=== PATIENT | female | born 1990 | race Caucasian/White ===

== ENCOUNTER 2020-02-26 08:09 | Day surgery (SDC) | payer BC, SELFPAY ==
[2020-02-25 16:34] VITALS: BMI 28.3
--- NOTE | 2020-02-26 08:01 | PM.IMHP ---
H&P: HPI History of Present Illness Chief complaint: Missed AB Narrative: Amy Hercules is a 29 year old female under 1st trimester in a proven abnormal [place] who is admitted for suction dilatation curettage she has an ultrasound was proves an abnormal and she is bleeding risks and benefits reviewed. Review of Systems Review of Systems: All systems reviewed & are unremarkable except as noted in HPI and below PMFSH Social History Social History Gender identity (if verbalized by the patient): Female Meds Home Medications and Allergies Home Medications Medication Instructions Recorded Confirmed Type [id number] fum-folic ac-om3 1 pkg PO DAILY 02/25/20 02/25/20 History [Daily ] Allergies Allergy/AdvReac Type Severity Reaction Status Date / Time No Known Allergies Allergy Unverified 02/25/20 16:38 Exam Const: General: no acute distress Eyes: General: appearance normal, both eyes and all related structures Neck: Neck: supple and no JVD Thyroid: thyroid normal Resp: Effort & Inspection: normal respiratory effort Auscultation: clear to auscultation bilaterally Cardio: Rate: regular rate Rhythm: regular rhythm GI: Inspection: non-distended GI Palp: Yes Soft to palpation, No Tenderness to palpation present (GI) and No Guarding due to palpation present (GI) Auscultation: normal bowel sounds : General: Yes bladder normal to palpation External Female Exam: normal external appearance Speculum Exam - Vagina: normal vaginal discharge and No vaginal bleeding Speculum Exam - Cervix: nontender Bimanual exam- vagina & uterus: bladder normal to palpation and No Cervical tenderness present OB/external & speculum: No vaginal bleeding Skin: General skin exam: no rashes or lesions noted Extrem: General: normal to inspection and no edema Psych: Mental Status: mental status grossly normal Affect: normal affect Assessment and Plan Additional Plan incomplete AB Plan: Suction dilatation curettage
[2020-02-26] MEDS: LACTATED RINGERS 1,000 ML 30 ML IV CONT (13:15)
[2020-02-26 13:20] LABS: Hematocrit 38.8 % (37.0-47.0); Hemoglobin 12.9 g/dL (12.0-15.0)
--- NOTE | 2020-02-26 13:20 | WPDANESEPPF ---
Anes - Initial Pre Proc Eval Procedure: Operation Date: 02/26/20 14:30 Proposed Procedures p Suction Dilation And Curettage - Peter Arnold MD Date/Time: 02/26/20 13:20 Surgeon: Peter Arnold MD Pre Op Diagnosis: Missed AB Patient Data Age: 29 Gender: F Height: 5 ft 5 in Weight: 77.27 kg Allergies Allergy/AdvReac Type Severity Reaction Status Date / Time No Known Allergies Allergy Unverified 02/25/20 16:38 Home Medications Medication Instructions Recorded Confirmed Type [id number] fum-folic ac-om3 1 pkg PO DAILY 02/25/20 02/25/20 History [Daily ] hydrocodone-acetaminophen [[place]] 1 tablet PO Q4H PRN #20 tablet 02/26/20 Rx Laboratory Tests 02/26/20 13:12 Hgb Pending Hct Pending Patient hx anesthesia problems: none Family hx anesthesia problems: none PMFSH Past Medical History Medical History (Updated 02/26/20 @ 13:20 by Peter Lin MD) Missed ab Social History Social History Gender identity (if verbalized by the patient): Female Anes - Eval Final PreProcedure Day of Procedure 02/26/20 13:20 Patient weight: overweight Heart: regular rate and rhythm Lungs: clear to auscultation Airway: Mallampati scale class II Neurological: alert and oriented Last oral intake: >/= 8 hours ASA classification: II Emergent: no Anesthetic plan: proceed Anesthesia type and monitoring: general GIVS and standard monitoring Informed Consent: The patient's anesthetic plan and its attendant risks and benefits were discussed with the patient/family/POA. Questions were solicited and answers provided to the satisfaction of the patient/family/POA.
[2020-02-26 13:43] VITALS: BP 117/69; PULSE 92; RESP 16; TEMP 36.6; O2SAT 100
[2020-02-26] MEDS: KETOROLAC 30 MG/ML VIAL (*BKC) IM (14:30)
--- NOTE | 2020-02-26 14:53 | SUR.OPER ---
ebl:25cc
--- NOTE | 2020-02-26 14:59 | PM.PROC ---
Procedure Note - Detailed Date of procedure: 02/26/20 Pre-op diagnosis: Missed AB Surgeon: Peter Arnold MD Postop diagnosis: Missed AB Anesthesia: IV sedation and local Procedure: Suction dilatation curettage EBL: 25cc Findings: Uterus sounded to 10cm. Tissue consistent with products conception Complications: None Description of procedure patient was prepped and draped in the normal sterile fashion placed in the dorsal lithotomy position. Under excellent IV sedation weighted speculum placed in posterior fornix of vagina. Anterior lip of cervix grasped with a single-tooth tenaculum. 2.5cc of 1% xylocaine anesthesia placed at 2:48 a.m. and kelsie the cervix. Uterus sounded to 10cm. Serial dilatation fragment out performed follow-up passes with a 10. Curved suction curette. This passed over the entire 360? revealed removing a minimal amount of tissue. When a good grating sound was heard, the instruments removed. Blood loss was estimated 25cc. All sponge, needle, instrument counts were correct. There were no immediate complications. She did not require RhoGAM as she is Rh positive
[2020-02-26 15:00] VITALS: BP 105/61; PULSE 103; RESP 16; O2SAT 96
[2020-02-26 15:30] VITALS: BP 110/68; PULSE 78; RESP 16
== END 2020-02-26 16:05 | disposition home or self-care (01) ==
PROVIDERS: PCP Internal Medicine; Visit Provider Obstetrics & Gynecology
PROC: (CPT 59820; principal; 2020-02-26 14:30)
DX: O02.1 Missed abortion (principal)
CPT/HCPCS: 59820; 36415; 85014; 85018; 86900; 86901; 88305; 88342; A9270; J1885; J2250; J2704; J3010; J7120

== ENCOUNTER 2020-06-18 02:37 | Day surgery (SDC) | payer BC, SELFPAY ==
[2020-06-17 12:28] VITALS: BMI 28.3
--- NOTE | 2020-06-17 13:09 | PM.IMHP ---
H&P: HPI History of Present Illness Chief complaint: Missed Ab Narrative: Amy Hercules is a 29 year old female who is admitted for 1st trimester missed AB. She had a previous miscarriage and vaginal delivery x1. She has an ultrasound showing an abnormal 1st trimester . Risks and benefits reviewed Review of Systems Review of Systems: All systems reviewed & are unremarkable except as noted in HPI and below PMFSH Past Medical History Medical History Missed ab Social History Social History Smoking status: Never smoker Gender identity (if verbalized by the patient): Female Spiritual care concerns: No Meds Home Medications and Allergies Home Medications Medication Instructions Recorded Confirmed Type [id number] fum-folic ac-om3 1 pkg PO DAILY 02/25/20 06/17/20 History [Daily ] progesterone micronized 200 mg PO DAILY 06/17/20 06/17/20 History Allergies Allergy/AdvReac Type Severity Reaction Status Date / Time No Known Allergies Allergy Unverified 06/17/20 12:29 Exam Const: General: no acute distress Eyes: General: appearance normal, both eyes and all related structures Neck: Neck: supple and no JVD Thyroid: thyroid normal Resp: Effort & Inspection: normal respiratory effort Auscultation: clear to auscultation bilaterally Cardio: Rate: regular rate Rhythm: regular rhythm GI: Inspection: non-distended GI Palp: Yes Soft to palpation, No Tenderness to palpation present (GI) and No Guarding due to palpation present (GI) Auscultation: normal bowel sounds : General: Yes bladder normal to palpation External Female Exam: normal external appearance Speculum Exam - Vagina: normal vaginal discharge and No vaginal bleeding Speculum Exam - Cervix: nontender Bimanual exam- vagina & uterus: bladder normal to palpation and No Cervical tenderness present OB/external & speculum: No vaginal bleeding Skin: General skin exam: no rashes or lesions noted Extrem: General: normal to inspection and no edema Psych: Mental Status: mental status grossly normal Affect: normal affect Assessment and Plan Additional Plan impression: 1St trimester has incomplete AB Plan: Suction D&C
--- NOTE | 2020-06-18 02:41 | WPDHPUPDATE1 ---
History and Physical Update Update Date/Time: 06/18/20 02:41 History and Physical has been reviewed, including an updated exam of the patient. There are NO changes in the patient's condition. Risks, benefits, and alternatives have been discussed and questions answered. Patient agrees to proceed with procedure.
--- NOTE | 2020-06-18 11:30 | WPDANESEPPF ---
Anes - Initial Pre Proc Eval Procedure: Operation Date: 06/18/20 14:30 Proposed Procedures p Suction Dilation and Curettage - Peter Arnold MD Date/Time: 06/18/20 11:30 Surgeon: Peter Arnold MD Pre Op Diagnosis: Missed Ab Patient Data Age: 29 Gender: F Height: 1.65 m Weight: 77.27 kg Allergies Allergy/AdvReac Type Severity Reaction Status Date / Time No Known Allergies Allergy Verified 06/18/20 12:47 Home Medications Medication Instructions Recorded Confirmed Type [id number] fum-folic ac-om3 1 pkg PO DAILY 02/25/20 06/18/20 History [Daily ] progesterone micronized 200 mg PO DAILY 06/17/20 06/18/20 History hydrocodone-acetaminophen [[place]] 1 tablet PO Q4H PRN #20 tablet 06/18/20 Rx Patient hx anesthesia problems: none Family hx anesthesia problems: none PMFSH Past Medical History Medical History (Updated 06/18/20 @ 11:34 by Yoseph Vazquez MD) Anxiety Missed ab Social History Social History Smoking status: Never smoker Gender identity (if verbalized by the patient): Female Spiritual care concerns: No Anes - Eval Final PreProcedure Day of Procedure 06/18/20 11:30 Patient weight: overweight Heart: regular rate and rhythm Lungs: clear to auscultation and normal air movement Airway: Mallampati scale class II Neurological: alert and oriented Last oral intake: >/= 8 hours ASA classification: II Emergent: no Anesthetic plan: proceed Anesthesia type and monitoring: general GIVS and LMA Informed Consent: The patient's anesthetic plan and its attendant risks and benefits were discussed with the patient/family/POA. Questions were solicited and answers provided to the satisfaction of the patient/family/POA.
[2020-06-18 13:17] LABS: Hematocrit 40.1 % (37.0-47.0); Hemoglobin 13.8 g/dL (12.0-15.0)
[2020-06-18] MEDS: LACTATED RINGERS 1,000 ML 30 ML IV CONT (13:19)
[2020-06-18] MEDS: ACETAMINOPHEN 500 MG TABLET 1000 MG PO (13:20)
[2020-06-18 13:27] VITALS: BP 116/73; PULSE 88; RESP 16; TEMP 36.8; O2SAT 99
--- NOTE | 2020-06-18 14:16 | PM.PROC ---
Procedure Note - Detailed Date of procedure: 06/18/20 Pre-op diagnosis: Missed Ab Surgeon: Peter Arnold MD Postop diagnosis: 1St trimester missed AB Procedure: Suction dilatation curettage Anesthesia: IV sedation local EBL: 25cc Complications: None Findings: Uterus sounded to10 cm. Tissue consistent with products of conception Description ofProcedure: the patient was prepped draped in the normal sterile fashion and placed in the dorsal lithotomy position. Under IV sedation weighted speculum was placed in the posterior fornix of vagina. Anterior lip of the cervix was grasped with a single-tooth tenaculum. 2.5cc of 1% xylocaine anesthesia placed at 2, 4, 8 cut by 10:00 a.m. respectively of the cervix. Uterus sounded to 10cm. Serial dilatation with fragmented dilators performed followed by passage of the 9. Suction curette. Moderate amount of tissue was removed. When a good grating sound was heard the procedure was terminated. All sponge, needle, instrument counts were correct. There were no immediate complications
[2020-06-18 14:20] VITALS: BP 108/71; PULSE 97; RESP 14; O2SAT 97
[2020-06-18 14:50] VITALS: BP 94/60; PULSE 77
[2020-06-18 15:15] VITALS: BP 110/64; PULSE 75
== END 2020-06-18 15:28 | disposition home or self-care (01) ==
PROVIDERS: PCP Internal Medicine; Visit Provider Obstetrics & Gynecology
PROC: (CPT 59820; principal; 2020-06-18 14:30)
DX: O02.1 Missed abortion (principal)
CPT/HCPCS: 59820; 36415; 85014; 85018; 88305; A9270; J2250; J2704; J3010; J7120

== ENCOUNTER 2021-02-26 19:55 | Outpatient (CLI) | payer BC, SELFPAY ==
[2021-02-26 21:00] VITALS: BP 118/73; PULSE 108
== END 2021-02-26 21:00 | disposition home or self-care (01) ==
PROVIDERS: PCP Internal Medicine; Visit Provider Obstetrics & Gynecology
DX: O42.90 Premature rupture of membranes, unspecified as to length of time between rupture and onset of labor, unspecified weeks of gestation (principal); Z3A.00 Weeks of gestation of pregnancy not specified
CPT/HCPCS: 59025; 84112

== ENCOUNTER 2021-03-23 18:37 | Outpatient (CLI) | payer BC, SELFPAY ==
[2021-03-23 18:50] VITALS: BP 124/66; PULSE 98
[2021-03-23 19:20] VITALS: BP 124/66
--- NOTE | 2021-03-23 19:25 | PC.NURSE ---
Pt states she was concerned she was leaking fluid. Noted a trickle at 1400 today. States had same with previous at 36 weeks. ROM plus was negative. heart tones appropriate for gestational age. No contractions.
== END 2021-03-23 19:25 ==
LOC: ANHOBPP 19:09 → ANHOBOP 03-24 08:27 → ANHOBPP 03-24 08:27
PROVIDERS: PCP Internal Medicine; Visit Provider Obstetrics & Gynecology
DX: O42.90 Premature rupture of membranes, unspecified as to length of time between rupture and onset of labor, unspecified weeks of gestation (principal); Z3A.00 Weeks of gestation of pregnancy not specified
CPT/HCPCS: 59025; 84112; 99199

== ENCOUNTER 2021-04-01 14:16 | Outpatient (CLI) | payer BC, SELFPAY ==
[2021-04-01 15:00] VITALS: BP 110/68; PULSE 88
== END 2021-04-01 15:45 | disposition home or self-care (01) ==
LOC: ANHOBOP 14:33 → ANHLDR 14:35
PROVIDERS: PCP Internal Medicine; Visit Provider Obstetrics & Gynecology
DX: O42.90 Premature rupture of membranes, unspecified as to length of time between rupture and onset of labor, unspecified weeks of gestation (principal); Z3A.00 Weeks of gestation of pregnancy not specified
CPT/HCPCS: 59025; 84112; 99199

== ENCOUNTER 2021-04-23 19:10 | Outpatient (CLI) | payer BC, SELFPAY ==
[2021-04-23 19:22] VITALS: BP 111/67; PULSE 88
[2021-04-23 19:30] VITALS: BP 113/63; PULSE 90
[2021-04-23 19:45] VITALS: BP 102/65; PULSE 90
[2021-04-23 19:57] VITALS: BP 102/65; PULSE 90
--- NOTE | 2021-04-24 07:37 | PM.OBTRLD ---
OB - Triage/Final Diagnosis Visit Information Date of evaluation: 04/23/21 Reason for evaluation: other (leaking) Comments/Additional reasons for admission: I have assessed the risk for this patient, Amy Hercules, and determined that she would benefit from observation care. Evaluation Vital signs: Vital Signs - 24 hr 04/23/21 19:22 04/23/21 19:30 04/23/21 19:45 Pulse Rate 88 90 90 Blood Pressure 111/67 113/63 102/65 Blood Pressure [Left Arm] 04/23/21 19:57 Pulse Rate 90 Blood Pressure Blood Pressure [Left Arm] 102/65
== END 2021-04-23 19:57 | disposition home or self-care (01) ==
LOC: ANHOBOP 19:14 → ANHOBPP 19:16
PROVIDERS: PCP Internal Medicine; Visit Provider Obstetrics & Gynecology
DX: O26.851 Spotting complicating pregnancy, first trimester (principal); Z3A.00 Weeks of gestation of pregnancy not specified
CPT/HCPCS: 59025; 84112; 99199

== ENCOUNTER 2021-05-02 15:38 | Observation (INO) | payer BC, SELFPAY ==
--- NOTE | 2021-05-02 15:38 | LDADM ---
This patient, Amy Hercules, was admitted to OB Post 115 on 05/02/21 at 15:38. Plans for labor, pain management and were discussed with patient. Patient/family oriented to hospital policies and general routines including ID bracelet, bed and alarms, visiting hours, pain management, procedures, bathroom and other care routines, personal items, smoking policy, room service/diet and guest tray routines, infant security routines, and visiting hours. Patient/Family are encouraged to report perceived risks to care and to ask questions if they do not understand what they are told or what they should do. See OBIX for further documentation.
[2021-05-02 16:00] VITALS: BMI 30.4
[2021-05-02 16:18] VITALS: BP 118/76; PULSE 98
[2021-05-02 16:21] LABS: Add Urine Microscopic? YES; Appearance Urine Cloudy (Clear); Bilirubin Urine Negative (Negative); Blood Urine Negative (Negative); Color Urine Yellow (Yellow); Glucose Urine UA Negative (Negative); Ketones Urine Negative (Negative); Leukocyte Esterase Ur Trace LEU/UL (Negative); Mucus Urine Rare /lpf; Nitrate Urine Negative (Negative); Protein Urine Negative (Negative); RBC Urine 0-2 /hpf (0-2); Specific Grav Ur 1.006 (1.001-1.035); Squamous Epithelial Cell Urine Few /hpf (Few); Urobilinogen Urine Negative mg/dL (<2.0)
[2021-05-02 16:31] VITALS: BP 112/69; PULSE 95
[2021-05-02 17:01] VITALS: BP 108/69; PULSE 95
[2021-05-02 18:01] VITALS: BP 97/57; PULSE 88
[2021-05-02 18:25] LABS: Fetal Fibronectin Negative
--- NOTE | 2021-05-11 18:19 | P.PNOB_ITS ---
OB - Triage/Final Diagnosis Visit Information Comments/Additional reasons for admission: I have assessed the risk for this patient, Amy Hercules, and determined that she would benefit from observation care. Evaluation Laboratory results: Laboratory Tests 05/02/21 05/02/21 16:04 17:35 Urine Color Yellow Urine Appearance Cloudy H Urine pH 6.0 Ur Specific [place] 1.006 Urine Protein Negative Urine Glucose (UA) Negative Urine Ketones Negative Ur Blood (Man) Negative Urine Nitrate Negative Urine Bilirubin Negative Urine Urobilinogen Negative Leukocyte Esterase Rfl Trace H Urine RBC 0-2 Urine WBC 4-6 H Ur Squamous Epith Cells Few Urine Mucus Rare Fibronectin Negative Final Diagnosis (1) False labor: Code(s): O47.9 - False labor, unspecified Status: Acute
== END 2021-05-02 18:43 | disposition home or self-care (01) ==
PROVIDERS: Admitting Provider Obstetrics & Gynecology; PCP Internal Medicine; Visit Provider Obstetrics & Gynecology
DX: O47.9 False labor, unspecified (principal); Z3A.00 Weeks of gestation of pregnancy not specified
CPT/HCPCS: 81001; 82731; G0378; G0379

== ENCOUNTER 2021-05-20 18:41 | Outpatient (CLI) | payer BC, SELFPAY ==
[2021-05-20 19:35] VITALS: BP 128/78; PULSE 92
--- NOTE | 2021-05-20 19:40 | PC.NURSE ---
Pt here for R/O SROM. States feeling leaking since last PM. Clear fluid. ROM plus was negative. FHT reactive. Dr. Tobias Manrique notified and pt discharged to home.
--- NOTE | 2021-05-21 03:45 | PM.OBTRLD ---
OB - Triage/Final Diagnosis Visit Information Reason for evaluation: other (threatened rom) Comments/Additional reasons for admission: I have assessed the risk for this patient, Amy Hercules, and determined that she would benefit from observation care. Evaluation Vital signs: Vital Signs - 24 hr 05/20/21 19:35 Pulse Rate 92 Blood Pressure [Left Arm] 128/78
== END 2021-05-20 19:35 | disposition home or self-care (01) ==
LOC: ANHOBOP 20:31 → ANHOBPP 20:32
PROVIDERS: PCP Internal Medicine; Visit Provider Obstetrics & Gynecology
DX: O20.0 Threatened abortion (principal); Z3A.00 Weeks of gestation of pregnancy not specified
CPT/HCPCS: 59025; 84112; 99199

== ENCOUNTER 2021-06-03 10:57 | Outpatient (CLI) | payer BC, SELFPAY ==
[2021-06-03 11:36] VITALS: BP 117/80; PULSE 92
== END 2021-06-03 10:58 | disposition home or self-care (01) ==
LOC: ANHOBOP 11:46
PROVIDERS: PCP Internal Medicine; Visit Provider Obstetrics & Gynecology
DX: O42.90 Premature rupture of membranes, unspecified as to length of time between rupture and onset of labor, unspecified weeks of gestation (principal); Z3A.00 Weeks of gestation of pregnancy not specified
CPT/HCPCS: 59025; 84112

== ENCOUNTER 2021-06-08 15:52 | Inpatient (IN) | payer BC, SELFPAY ==
[2021-06-08] VITALS (78 sets, daily range): BP systolic 93–137; BP diastolic 29–98; PULSE 74–119; RESP 18–20; TEMP 36.2–36.6; O2SAT 95–100; BMI 30.8
--- NOTE | 2021-06-08 15:52 | LDADM ---
This patient, Amy Hercules, was admitted to Labor/Delivery/Recovery 105 on 06/08/21 at 15:52. Plans for labor, pain management and were discussed with patient. Patient/family oriented to hospital policies and general routines including ID bracelet, bed and alarms, visiting hours, pain management, procedures, bathroom and other care routines, personal items, smoking policy, room service/diet and guest tray routines, security routines, and visiting hours. Patient/Family are encouraged to report perceived risks to care and to ask questions if they do not understand what they are told or what they should do. See OBIX for further documentation.
[2021-06-08 16:34] LABS: Basophils Percent Auto 0.2 % (0.2-1.2); Eosinophils Absolute Auto 0.1 K/mm3 (0-0.3); Eosinophils Percent Auto 0.8 % (0-4.4); Hematocrit 38.2 % (37.0-47.0); Hemoglobin 13.2 g/dL (12.0-15.0); Immature Granulocyte Absolute 0.05 K/mm3 (0.00-0.031); Immature Granulocyte Percent A 0.5 % (0-0.5); Lymphocytes Absolute Auto 1.78 K/mm3 (0.9-3.2); Lymphocytes Percent Auto 18.8 % (18.3-44.2); Mean Corpuscular HGB Conc 34.6 g/dl (32-36); Mean Corpuscular Hemoglobin 31.5 pg (26-34); Mean Corpuscular Volume 91.2 fl (80-100); Monocytes Absolute Auto 0.5 K/mm3 (0.1-0.6); Monocytes Percent Auto 4.9 % (2.6-8.5); Neutrophils Absolute Auto 7.1 K/mm3 (1.3-6.7); Neutrophils Percent Auto 74.8 % (45.5-73.1); Platelet Count Result 162 k/mm3 (150-375); Red Blood Count 4.19 M/mm3 (4.2-5.4); White Blood Count 9.5 K/mm3 (4.5-10.0)
[2021-06-08] MEDS: DINOPROSTONE 10 MG VAG INSERT VAGINAL (16:39)
[2021-06-08] MEDS: LACTATED RINGERS 1,000 ML 125 ML IV CONT ×3 (17:19→22:03)
--- NOTE | 2021-06-08 17:22 | P.PNAN_ITS ---
Anes - Eval Pre Procedure Procedure: Labor epidural Date/Time: 06/08/21 17:22 Surgeon: yumiko Preop Diagnosis: Abd pain with contractions Pre Op Diagnosis: IOL Patient Data Age: 30 Gender: F Height: 1.65 m Weight: 84 kg Last Vital Signs Temp 97.7 F 06/08/21 16:11 Pulse 90 06/08/21 17:15 Resp 20 06/08/21 16:11 BP 119/64 06/08/21 17:15 Allergies Allergy/AdvReac Type Severity Reaction Status Date / Time No Known Allergies Allergy Verified 05/16/21 15:37 Home Medications Medication Instructions Recorded Confirmed Type Daily 1 pkg PO DAILY 02/25/20 06/08/21 History Laboratory Tests 06/08/21 06/08/21 16:18 16:18 WBC 9.5 K/mm3 K/mm3 (4.5-10.0) RBC 4.19 M/mm3 L M/mm3 (4.2-5.4) Hgb 13.2 g/dL g/dL (12.0-15.0) Hct 38.2 % % (37.0-47.0) MCV 91.2 fl fl (80-100) MCH 31.5 pg pg (26-34) MCHC 34.6 g/dl g/dl (32-36) RDW 13.0 % % (11.5-14.5) Plt Count 162 k/mm3 k/mm3 (150-375) MPV 10.0 fl fl (7.4-10.4) Immature Gran % (Auto) 0.5 % % (0-0.5) Neut % (Auto) 74.8 % H % (45.5-73.1) Lymph % (Auto) 18.8 % % (18.3-44.2) [place] % (Auto) 4.9 % % (2.6-8.5) Eos % (Auto) 0.8 % % (0-4.4) Baso % (Auto) 0.2 % % (0.2-1.2) Lymph # (Auto) 1.78 K/mm3 K/mm3 (0.9-3.2) [place] # (Auto) 0.5 K/mm3 K/mm3 (0.1-0.6) Eos # (Auto) 0.1 K/mm3 K/mm3 (0-0.3) Baso # (Auto) 0.0 K/mm3 K/mm3 (0.0-0.1) Abs Immat Gran (auto) 0.05 K/mm3 H K/mm3 (0.00-0.031) Absolute Neuts (auto) 7.1 K/mm3 H K/mm3 (1.3-6.7) Absolute Nucleated RBC 0.0 K/mm3 K/mm3 (0.0-0.012) Nucleated RBC % 0.0 % % (0.0-0.2) RPR Pending Patient hx anesthesia problems: none Family hx anesthesia problems: none PMFSH Past Medical History Medical History Anxiety Missed ab and not yet delivered Family History Family History Other No pertinent family history Social History Social History Smoking status: Never smoker Substance use: never Gender identity (if verbalized by the patient): Female Spiritual care concerns: No Exam Day of Procedure 06/08/21 17:22 Patient weight: overweight Airway: Mallampati scale class II Neurological: alert and oriented
[2021-06-09] VITALS (191 sets, daily range): BP systolic 86–134; BP diastolic 19–87; PULSE 63–113; RESP 16–20; TEMP 36.1–37.1; O2SAT 87–100
[2021-06-09] MEDS: OXYTOCIN 30 UNITS/NS 500 ML 30 UNITS/500 ML BAG IV CONT (06:39)
--- NOTE | 2021-06-09 08:30 | WPDOBADMIT ---
Obstetrics - Admit Note Admission Note: record reviewed. Additions to the history and/or subsequent changes in the physical findings follow. 30 y/o at 39 1/7 weeks gestation here for induction of labor. Cervidil overnight, has been withdrawn. Now comfortable with epidural, receiving oxytocin. GBS neg. AVSS NST reactive TOCO: contractions every 3-4 min ABD soft, nontender, gravid, vertex EXT nontender Cervix 7/100/-1. AROM with thinly meconium-stained fluid. A: IUP at 39 1/7 weeks, desiring induction of labor. P: Oxytocin. Anticipate . Peds aware of meconium.
[2021-06-09] MEDS: LACTATED RINGERS 1,000 ML 125 ML IV CONT (08:54)
[2021-06-09 09:25] LABS: Rapid Plasma Reagin Non-Reactive (NonReactive)
--- NOTE | 2021-06-09 11:42 | P.PCNOB_ITS ---
OB - Delivery Note Procedure Delivery date: 06/09/21 Procedure: Induction of labor with Induction method: per cervidil protocol Delivery augmentation: rupture of membranes and pitocin Delivery monitor: external FHT and external uterine Route of delivery: Laceration Description: Perineal - 2nd Degree Delivery repair: vicryl (3-0) Specimen: Yes (cord blood) Quantitative Blood Loss (ml): 450 Anesthesia type: Epidural Disposition: PACU Complications: None Narrative: 30 y/o at 39 1/7 weeks gestation who presented to the hospital for induction of labor. Cervidil was placed overnight, subsequently withdrawn. Oxytocin was administered intravenously. Amniotomy was performed with return of thinly meconium-stained fluid. She received an epidural for pain control. Her labor progressed and her cervix dilated completely. She pushed with good effort and delivered the infant's head to the perineum, followed by the body. The nose and mouth were bulb suctioned. After a delay, the cord was clamped and cut. The was handed off the field. Cord blood was collected. The placenta delivered spontaneously and was grossly normal in appearance. The usual 3 vessel cord was noted. A second degree midline perineal laceration was sustained. This was reapproximated using 3 0 Vicryl in the usual layered fashion. Some persistent bleeding from the distal vaginal epithelium was finally able to be controlled with vaginal packing. A laguerre catheter was placed. Needle and instrument counts were correct. The patient was taken to recovery room in stable condition. The infant went to the nursery in stable condition. I was present and scrubbed for the entire delivery. Plan to discontinue the packing and laguerre in 6 hours. [place] Baby Date of : 06/09/21 Time of : 11:17 Weeks of gestation at delivery: 39 gender: Male Weight (pounds): 8 Weight (ounces): 4 presentation: vertex position: Right Occiput Anterior Placenta delivery description: Spontaneous and Normal Configuration cord vessel description: 3 Vessels and Delayed Cord Clamping score one minute: 9 score five minutes: 9
[2021-06-09] MEDS: OXYTOCIN 30 UNITS/NS 500 ML 30 UNITS/500 ML BAG 125 UNITS IV CONT (11:52)
[2021-06-09] MEDS: IBUPROFEN 600 MG TABLET PO ×2 (13:07→21:04)
[2021-06-09] MEDS: WITCH HAZEL 40 PADS 1 PAD TOPICAL (13:48)
[2021-06-09] MEDS: BENZOCAINE 20% AER SPR (*SP) 56 GM CAN 1 SPRAY TOPICAL (13:48)
--- NOTE | 2021-06-09 14:45 | PC.NURSE ---
Breast pump provided due to mother's wishes Instructions given on breast pump care and usage, pumping schedule, nipple care, and collection and storage of breast milk. Encouraged [id number], breast massage and manual expression to stimulate supply. Assessed patient for correct flange size, placement and draw. Patient verbalizes and demonstrates understanding of instructions.
--- NOTE | 2021-06-09 20:24 | PC.NURSE ---
1411 Pt admitted to room 280 per wheelchair from labor and delivery after spontaneous vaginal delivery of viable male infant at [address] Schmidt. this is mother's second baby and she is choosing to breast feed infant; FOB present. Couple oriented to room, staffing and procedures; admission folder reviewed with them; Pt's VSS and assessment WNL.
[2021-06-09] MEDS: ACETAMINOPHEN 325 MG TABLET 650 MG PO (20:36)
[2021-06-10] VITALS: BP 107/70; PULSE 81; RESP 16; TEMP 36.9; O2SAT 97
[2021-06-10] MEDS: IBUPROFEN 600 MG TABLET PO ×3 (03:03→18:43)
[2021-06-10 04:00] VITALS: BP 110/74; PULSE 79; RESP 16; TEMP 36.8; O2SAT 98
[2021-06-10 04:53] LABS: Hematocrit 34.2 % (37.0-47.0); Hemoglobin 11.1 g/dL (12.0-15.0)
[2021-06-10] MEDS: MULTIVIT/MIN/PREN/FOL AC/IRON TABLET 1 TAB PO (08:47)
--- NOTE | 2021-06-10 08:55 | WPDANLDPN2 ---
Anes-Prog Note L&D Date/Time: 06/10/21 08:55 Comfortable throughout: labor and delivery Neuraxial method: epidural Epidural/Spinal procedure site: clean & non-tender Neuro status: Neuro function grossly intact. Cardiovascular status: normal Respiratory status: normal Airway patency: baseline Mental status: baseline Post-Op hydration status: normal Vital Signs: Last Vital Signs Temp 36.8 C 06/10/21 04:00 Pulse 79 06/10/21 04:00 Resp 16 06/10/21 04:00 BP 110/74 06/10/21 04:00 Pulse Ox 98 06/10/21 04:00 Pain score (VAS): 12/05 I/O: Intake & Output 06/09/21 06/10/21 06/10/21 23:59 07:59 15:59 Output Total 1256 Balance -1256 Post-procedural complaints: none Patient feedback: Patient satisfied with anesthetic care.
[2021-06-10 09:00] VITALS: BP 105/68; PULSE 87; RESP 18; TEMP 36.4; O2SAT 97
--- NOTE | 2021-06-10 09:15 | PC.NURSE ---
Consult with pt., mother states she continues to pump without difficulties or discomfort. Mother has put to breast a few times and is unsure if she will continue or pump and bottle feed as she did with first child. Reviewed pumping schedule, nipple care, and collection and storage of breast milk. Encouraged [id number], breast massage and manual expression to stimulate supply. Offered assist if mother wishes to put to breast. Mother is feeding as required and waking infant to feed if needed. Reviewed transition to breast milk, signs of adequate intake, and engorgement/relief. Reviewed regular medications mother is taking. Information provided per Ann. Reviewed community resources on the [employer] website and in the Mom/Baby guide. Information on outpatient services provided. Mother has no further questions at this time.
--- NOTE | 2021-06-10 17:17 | PM.OBPNVD ---
OB - PN: Subj Subjective Date/time seen: 06/10/21 17:17 Narrative: Pain OK. Would like circumcision for son. OB - PN: Obj Data Labs CBC & Chem 7: 06/10/21 03:16 Labs: Laboratory Results - last 24 hr 06/10/21 03:16 Hgb 11.1 L Hct 34.2 L OB - PN A/P Plan Comments: A: PPD#1, doing well. P: Routine care. Reviewed circ. Exam Psych: Other: AVSS ABD soft, nontender, fundus firm EXT nontender
--- NOTE | 2021-06-10 17:18 | PM.OBDSVD ---
DS: Admitting Diagnosis Admitting Diagnosis Admitting Diagnosis: IUP at 39 weeks DS: Discharge Diagnosis Discharge Diagnosis (1) (normal spontaneous vaginal delivery): Code(s): O80 - Encounter for full-term uncomplicated delivery Status: Acute OB - DS: Summary OB Procedures : None OB Procedures Intrapartum: Spontaneous Vag Delivery OB Procedures: : None DS: Data Data Completed and Pending Labs on day of discharge: Labs from last 24 hours 06/10/21 03:16 Hgb 11.1 L Hct 34.2 L Discharge Plan Discharge Attending physician on discharge: Enrique Schmidt Discharging Clinician: Enrique Schmidt Patient Disposition: Home, Self-Care Activity: pelvic rest Diet: regular Discharge Instructions: Call or return if temperature above 100.4? F, increased abdominal pain, increased vaginal bleeding or any new problems. Stand Alone Forms: General Discharge Information Follow-up/Referrals: Enrique Schmidt MD [Physician] - 6 Weeks Discharge Medications: New ibuprofen 600 mg tablet 600 mg PO Q6H PRN (Reason: cramps) Qty: 30 RF: 0 No Action Daily [id number] mg-mcg-mg Combo Pack 1 pkg PO DAILY RF: 0 Date of admission: 06/08/21 15:52 Primary Care Provider: JohnathonKareen Admitting Provider: Enrique Schmidt Attending physician on admission: Enrique Schmidt Condition: Stable
[2021-06-11] VITALS: BP 107/73; PULSE 94; RESP 18; TEMP 36.3; O2SAT 97
[2021-06-11] MEDS: IBUPROFEN 600 MG TABLET PO (00:25)
[2021-06-11 08:00] VITALS: BP 111/72; PULSE 83; RESP 18; TEMP 36.3; O2SAT 98
[2021-06-11] MEDS: MULTIVIT/MIN/PREN/FOL AC/IRON TABLET 1 TAB PO (08:09)
--- NOTE | 2021-06-11 09:25 | PM.OBPNVD ---
OB - PN: Subj Subjective Date/time seen: 06/11/21 09:25 Narrative: Pain OK. Would like to go home. OB - PN: Obj Data Labs CBC & Chem 7: 06/10/21 03:16 OB - PN A/P Plan Comments: A: PPD#2, doing well. P: Home to f/u 6 weeks. Exam Psych: Other: AVSS ABD soft, nontender, fundus firm EXT nontender
== END 2021-06-11 12:33 | disposition home or self-care (01) | DRG 807 ==
LOC: ANHLDR 15:57 → ANHOB2 06-09 14:21
PROVIDERS: Admitting Provider Obstetrics & Gynecology; PCP Internal Medicine; Visit Provider Obstetrics & Gynecology
DX: O77.0 Labor and delivery complicated by meconium in amniotic fluid (principal); Z37.0 Single live birth; Z3A.39 39 weeks gestation of pregnancy; O70.1 Second degree perineal laceration during delivery; O36.8330 Maternal care for abnormalities of the fetal heart rate or rhythm, third trimester, not applicable or unspecified; O99.344 Other mental disorders complicating childbirth; F41.9 Anxiety disorder, unspecified
CPT/HCPCS: 36415; 85014; 85018; 85025; 86592; 86850; 86900; 86901; A9270; J2590; J2795; J7120

== ENCOUNTER 2023-01-20 16:37 | Emergency (ER) | payer BC, SELFPAY ==
[2023-01-20 17:05] VITALS: BP 141/81; PULSE 99; RESP 18; TEMP 36.7; O2SAT 100
[2023-01-20 17:15] LABS: Basophils Percent Auto 0.3 % (0.2-1.2); Eosinophils Absolute Auto 0.1 K/mm3 (0-0.3); Eosinophils Percent Auto 1.1 % (0-4.4); Hematocrit 39.2 % (37.0-47.0); Hemoglobin 13.5 g/dL (12.0-15.0); Immature Granulocyte Absolute 0.02 K/mm3 (0.00-0.031); Immature Granulocyte Percent A 0.2 % (0-0.5); Lymphocytes Absolute Auto 2.24 K/mm3 (0.9-3.2); Lymphocytes Percent Auto 24.9 % (18.3-44.2); Mean Corpuscular HGB Conc 34.4 g/dl (32-36); Mean Corpuscular Hemoglobin 30.5 pg (26-34); Mean Corpuscular Volume 88.5 fl (80-100); Monocytes Absolute Auto 0.4 K/mm3 (0.1-0.6); Monocytes Percent Auto 4.4 % (2.6-8.5); Neutrophils Absolute Auto 6.2 K/mm3 (1.3-6.7); Neutrophils Percent Auto 69.1 % (45.5-73.1); Platelet Count Result 222 k/mm3 (150-375); Red Blood Count 4.43 M/mm3 (4.2-5.4); Red Cell Distribution Width 12.5 % (11.5-14.5)
[2023-01-20 17:25] LABS: Alanine Aminotransferase 18 U/L (6-35); Alkaline Phosphatase 77 U/L (38-126); Anion Gap 4 mmol/L (8-16); Aspartate Amino Transferase 22 U/L (14-36); Bilirubin,Total 0.9 mg/dL (0.2-1.3); Blood Urea Nitrogen 9 mg/dL (7-17); Calcium 9.4 mg/dL (8.4-10.2); Carbon Dioxide 29 mmol/L (22-30); Chloride 104 mmol/L (98-107); Estimated Glomerular Filt Rate > 60; Glucose 118 mg/dL (65-110); Potassium 3.9 mmol/L (3.4-5.0); Sodium 137 mmol/L (137-145)
--- NOTE | 2023-01-20 17:32 | ECG_ITS ---
Measurements Intervals [place] Rate: 109 P: 62 LA: 112 QRS: 47 QRSD: 96 T: 15 QT: 363 QTc: 489 Interpretive Statements SINUS TACHYCARDIA WITH SHORT LA INTERVAL INCOMPLETE RIGHT BUNDLE BRANCH BLOCK [90+ ms QRS DURATION, TERMINAL R IN V1/V2, 40+ ms S IN I/aVL/V4/V5/V6] BORDERLINE ECG NO PREVIOUS ECG AVAILABLE FOR COMPARISON Electronically Signed On 01-21-2023 8:03:20 HYDROMETER TESTER by Myles Garcia M.D.
[2023-01-20 17:46] LABS: Appearance Urine Clear (Clear); Bilirubin Urine Negative (Negative); Blood Urine Trace-intact (Negative); Color Urine Yellow (Yellow); Glucose Urine UA Negative (Negative); Ketones Urine Negative (Negative); Leukocyte Esterase Ur Negative LEU/UL (Negative); Nitrate Urine Negative (Negative); Protein Urine Negative (Negative); Specific Grav Ur <= 1.005 (1.001-1.035); Urobilinogen Urine 0.2 mg/dL (<2.0)
[2023-01-20 17:48] LABS: Mucus Urine Rare /lpf; Squamous Epithelial Cell Urine Occasional /hpf (Few); WBC Urine 0-3 /hpf
[2023-01-20 17:50] LABS: Add Urine Microscopic? YES
--- NOTE | 2023-01-20 17:51 | ED.GENADULT ---
HPI - General Adult General Chief complaint: Unspecified Stated complaint: Back Pain two weeks Time Seen by Provider: 01/20/23 17:45 History of Present Illness HPI narrative: Patient is a 32-year-old female here for evaluation of belching over the past 2 weeks. States that the belching is uncomfortable and was previously associated with pain in her epigastric region which has since resolved. States that she saw her primary care doctor for her symptoms and was placed on a PPI, clarithromycin and sucralfate for presumed H. pylori. She is on day 7 and was prescribed 10 days of these medicines; states they have helped the epigastric discomfort greatly. Also reports some mild pain in her back. She denies any weight loss, vomiting, diarrhea, constipation, fevers or chills. Related Data Home Medications Medication Instructions Recorded Confirmed clarithromycin 500 mg tablet 500 mg BID 01/20/23 omeprazole 20 mg capsule,delayed 40 mg DAILY 01/20/23 release sucralfate 1 gram tablet (Carafate) 1 g Q6H 01/20/23 Allergies Allergy/AdvReac Type Severity Reaction Status Date / Time No Known Allergies Allergy Verified 01/20/23 17:44 Review of Systems Review of Systems: Gen.: Denies fevers or chills Eyes: Denies eye pain or visual change ENT: Denies congestion Respiratory: Denies shortness of breath or cough CV: Denies chest pain or palpitations GI: Reports belching. denies burning, urgency, frequency or hematuria Musculoskeletal: Denies back pain or muscle pain Neuro: Denies numbness, tingling, weakness or focal weakness Skin: Denies rash Except as documented, all other systems reviewed and negative PMFSH Past Medical History Medical History Anxiety Missed ab and not yet delivered Family History Family History Other No pertinent family history Social History Social History Smoking status: Never smoker Substance use: never Gender identity (if verbalized by the patient): Female Spiritual care concerns: No Exam Narrative: APPEARANCE: Well appearing, no pain in distress, well-nourished. Head: Normocephalic and atraumatic. EYES: PERRLA/EOMI, conjunctivae clear NOSE: No nasal drainage EARS: External ear normal in appearance THROAT: Oropharynx is clear. Mucous membranes are moist. NECK: Supple. No adenopathy, no masses. RESPIRATORY: Airway patent, respirations nonlabored. Clear to auscultation bilaterally, no rales, rhonchi, wheezing. CARDIOVASCULAR: Regular rate and rhythm without murmurs, rubs, or gallops. ABDOMINAL: Normoactive bowel sounds. Soft, nontender, nondistended. No rebound tenderness or guarding. MUSCULOSKELETAL: Extremities are warm and well-perfused. Moves all extremities well. No edema. NEURO: Normal speech. No focal neurologic deficits. SKIN: Skin is warm and dry. No rashes. PSYCHIATRIC: Normal affect/mood.. Course Vital Signs Vital signs: Vital Signs Temperature 98.1 F 01/20/23 17:05 Pulse Rate 99 01/20/23 17:05 Respiratory Rate 18 01/20/23 17:05 Blood Pressure 141/81 H 01/20/23 17:05 Pulse Oximetry 100 01/20/23 17:05 Oxygen Delivery Room Air 01/20/23 17:05 Temperature 98.1 F 01/20/23 17:05 Pulse Rate 99 01/20/23 17:05 Respiratory Rate 18 01/20/23 17:05 Blood Pressure 141/81 H 01/20/23 17:05 Pulse Oximetry 100 01/20/23 17:05 Oxygen Delivery Room Air 01/20/23 17:05 Medical Decision Making [facility] Narrative Medical decision making narrative: 32-year-old female here for evaluation of belching over the past week or so, currently being treated for H. pylori by her primary care doctor. She is nontoxic in appearance and has normal vital signs, no abdominal tenderness on exam whatsoever. Her basic labs are unremarkable including a normal lipase. Her urine does
[2023-01-20 17:56] LABS: Pregnancy On Board Control Positive; Urine Pregnancy Test Negative
[2023-01-20 18:04] LABS: Lipase 121 U/L (23-300)
[2023-01-20] MEDS: BELLADONNA ALK/PHENOB ELIX 10 ML, MAG HYDROX/ALUMINUM HYD/SIMETH 30 ML, LIDOCAINE HCL 2... PO (18:09)
[2023-01-20 18:17] LABS: Troponin I < 0.012 ng/mL (0.000-0.034)
== END 2023-01-20 19:20 | disposition home or self-care (01) ==
PROVIDERS: Physician Assistant; Emergency Provider Physician Assistant; PCP Internal Medicine
DX: R14.2 Eructation (principal); R00.0 Tachycardia, unspecified; I45.10 Unspecified right bundle-branch block
CPT/HCPCS: 36415; 80053; 81001; 81025; 83690; 84484; 85025; 93005; 99284; A9270

== ENCOUNTER 2023-02-09 15:16 | Emergency (ER) | payer BC, SELFPAY ==
[2023-02-09 15:25] VITALS: BP 134/82; PULSE 103; RESP 16; TEMP 36.4; O2SAT 100
[2023-02-09 16:22] LABS: Appearance Urine Cloudy (Clear); Bacteria Urine 3+ /hpf; Bilirubin Urine Negative (Negative); Blood Urine Negative (Negative); Color Urine Yellow (Yellow); Glucose Urine UA Negative (Negative); Ketones Urine Trace mg/dL (Negative); Leukocyte Esterase Ur 3+ LEU/UL (Negative); Need Manual Microscopic Reviewed; Nitrate Urine Negative (Negative); Non Pathogenic Casts 0-2; Protein Urine Negative (Negative); RBC Urine 51-100 /hpf (0-2); Specific Grav Ur 1.014 (1.001-1.035); Squamous Epithelial Cell Urine Moderate /hpf (Few); Urobilinogen Urine 0.2 mg/dL (<2.0); pH Urine 5.5 (5.0-9.0)
[2023-02-09 16:25] LABS: Add Urine Microscopic? YES
[2023-02-09 17:07] LABS: Basophils Percent Auto 0.5 % (0.2-1.2); Eosinophils Absolute Auto 0.1 K/mm3 (0-0.3); Eosinophils Percent Auto 0.7 % (0-4.4); Hemoglobin 13.8 g/dL (12.0-15.0); Immature Granulocyte Absolute 0.02 K/mm3 (0.00-0.031); Immature Granulocyte Percent A 0.2 % (0-0.5); Lymphocytes Absolute Auto 2.64 K/mm3 (0.9-3.2); Lymphocytes Percent Auto 29.9 % (18.3-44.2); Mean Corpuscular HGB Conc 33.7 g/dl (32-36); Mean Corpuscular Hemoglobin 30.2 pg (26-34); Mean Corpuscular Volume 89.7 fl (80-100); Mean Platelet Volume 9.5 fl (7.4-10.4); Monocytes Absolute Auto 0.3 K/mm3 (0.1-0.6); Monocytes Percent Auto 3.9 % (2.6-8.5); Neutrophils Absolute Auto 5.7 K/mm3 (1.3-6.7); Neutrophils Percent Auto 64.8 % (45.5-73.1); Platelet Count Result 218 k/mm3 (150-375); Red Blood Count 4.57 M/mm3 (4.2-5.4); Red Cell Distribution Width 12.5 % (11.5-14.5); White Blood Count 8.8 K/mm3 (4.5-10.0)
[2023-02-09 18:04] LABS: Prothrombin Time 13.2 Seconds (11.1-14.7)
[2023-02-09 18:05] LABS: Alanine Aminotransferase 19 U/L (6-35); Albumin Level 4.9 g/dL (3.5-5.1); Alkaline Phosphatase 86 U/L (38-126); Anion Gap 6 mmol/L (8-16); Aspartate Amino Transferase 19 U/L (14-36); Bilirubin,Total 1.1 mg/dL (0.2-1.3); Blood Urea Nitrogen 9 mg/dL (7-17); Calcium 9.8 mg/dL (8.4-10.2); Carbon Dioxide 27 mmol/L (22-30); Chloride 103 mmol/L (98-107); Estimated CRCL calculation 105 ml/min; Estimated Glomerular Filt Rate > 60; Glucose 85 mg/dL (65-110); Lipase 62 U/L (23-300); Potassium 4.6 mmol/L (3.4-5.0); Sodium 136 mmol/L (137-145)
[2023-02-09 18:05] LABS: Partial Thromboplastin Time 28.3 SECONDS (22.3-36.8)
--- NOTE | 2023-02-09 18:26 | ED.GENADULT ---
HPI - General Adult General Chief complaint: Unspecified Stated complaint: acid reflux Time Seen by Provider: 02/09/23 16:28 Source: RN notes reviewed History of Present Illness HPI narrative: Patient presents emergency department from home for blood in the stool. Patient states that she has been having ongoing problems with epigastric abdominal pain for the past approximately 3 to 4 weeks. States she has been seen by her PCP and recently had a CT scan done 2 days ago that was normal as well as has been seen by GI and is scheduled for an endoscopy next week. She states that this morning she had a bowel movement that had a small amount of blood streaking in it and she called her PCP who recommended she come to the ER for further evaluation. She states no change in epigastric abdominal pain denies any current pain but this pain she denies any fevers or chills nausea vomiting diarrhea or any other symptoms. Patient states there is only 1 episode and was only a small amount of red blood she states that she is currently on omeprazole states that she was seen by Dr. Jama as PA Related Data Home Medications Medication Instructions Recorded Confirmed omeprazole 20 mg capsule,delayed 40 mg DAILY 01/20/23 02/01/23 release Allergies Allergy/AdvReac Type Severity Reaction Status Date / Time No Known Allergies Allergy Verified 02/09/23 15:24 Review of Systems Review of Systems: Gen.: Denies fevers or chills ENT: Denies congestion Respiratory: Denies shortness of breath or cough CV: Denies chest pain or palpitations GI: see HPI Musculoskeletal: Denies back pain or muscle pain Neuro: Denies numbness, tingling, weakness or focal weakness Skin: Denies rash Except as documented, all other systems reviewed and negative [facility] Past Medical History Medical History Anxiety Belching Missed ab and not yet delivered Family History Family History Other No pertinent family history Social History Social History Smoking status: Never smoker Substance use: never Gender identity (if verbalized by the patient): Female Spiritual care concerns: No Exam Narrative: APPEARANCE: No acute distress, nontoxic, resting in bed EYES: EOMI HEENT: Normocephalic, atraumatic, OMM RESPIRATORY: No respiratory distress Clear to auscultation bilaterally with no rhonchi wheezing or rales. CARDIOVASCULAR: Regular rate and rhythm without murmurs rubs or gallops. ABDOMINAL: Soft, nondistended, mild tenderness in epigastric region no tenderness right upper quadrant, left upper quadrant and right lower quadrant left lower quadrant no rebound or guarding Rectal: No hemorrhoids or fissures, small amount of soft light brown stool that is Hemoccult negative MUSCULOSKELETAl: Moves all extremities. No clubbing, cyanosis or edema. NEURO: Awake and alert. Following commands, speech normal, no focal deficits SKIN:: Warm, dry. No rashes lesions or abrasions PSYCHIATRIC: Normal affect/mood, Course Course Emergency Course: Reviewed patient's old records the patient does have her CT scan done 2 days ago at [facility] CT scan shows diverticula with no diverticulitis no other acute process the gallbladder was normal Reviewed patient's recent GI visit patient was taken also Carafate still on omeprazole plan for endoscopy Discussed with patient results of workup and diagnosis. Discussed need for follow-up with primary care, proper use of medication, and reasons to return to the emergency department. Patient understands and agrees to current treatment plan Vital Signs Vital signs: Vital Signs Temperature 97.5 F L 02/09/23 15:25 Pulse Rate 103 H 02/09/23 15:25 Respiratory Rate 16 02/09/23 15:25 Blood Pressure 134/82 02/09/23 15:25 Pulse Oximetry 100 02/09/23 15
[2023-02-09] MEDS: NITROFURANTOIN MONOHYD MACROCR 100 MG CAP PO (18:39)
[2023-02-09 18:55] VITALS: BP 124/81; PULSE 89; RESP 18; O2SAT 100
== END 2023-02-09 18:57 | disposition home or self-care (01) ==
PROVIDERS: Emergency Medicine; Emergency Provider Emergency Medicine; PCP Internal Medicine
DX: K62.5 Hemorrhage of anus and rectum (principal)
CPT/HCPCS: 36415; 80053; 81001; 81025; 83690; 85025; 85610; 85730; 87077; 87086; 87186; 99283; A9270

== ENCOUNTER 2023-02-13 01:52 | Day surgery (SDC) | payer BC, SELFPAY ==
[2023-02-12 15:25] VITALS: BMI 29.1
[2023-02-13 07:19] VITALS: BP 133/84; PULSE 109; RESP 16; TEMP 36.2; O2SAT 98
[2023-02-13] MEDS: LACTATED RINGERS 1,000 ML 150 ML IV CONT (07:22)
--- NOTE | 2023-02-13 07:34 | WPDHPUPDATE1 ---
History and Physical Update Update Date/Time: 02/13/23 07:34 History and Physical has been reviewed, including an updated exam of the patient. There are NO changes in the patient's condition. Risks, benefits, and alternatives have been discussed and questions answered. Patient agrees to proceed with procedure.
--- NOTE | 2023-02-13 07:58 | WPDANESEPPF ---
Anes - Initial Pre Proc Eval Procedure: Operation Date: 02/13/23 08:30 Proposed Procedures p Esophagogastroduodenoscopy - Yovani Jett MD Date/Time: 02/13/23 07:58 Surgeon: Yovani Jett MD Pre Op Diagnosis: belching syndrome, epigastric/abdominal pain Patient Data Age: 32 Gender: F Height: 1.65 m Weight: 80.1 kg Last Vital Signs Temp 97.1 F L 02/13/23 07:19 Pulse 109 H 02/13/23 07:19 Resp 16 02/13/23 07:19 BP 133/84 02/13/23 07:19 Pulse Ox 98 02/13/23 07:19 O2 Del Method Room Air 02/13/23 07:19 Allergies Allergy/AdvReac Type Severity Reaction Status Date / Time No Known Allergies Allergy Verified 02/13/23 07:17 Home Medications Medication Instructions Recorded Confirmed Type omeprazole 20 mg capsule,delayed 20 mg PO DAILY 01/20/23 02/13/23 History release nitrofurantoin 100 mg PO Q12H 5 days #10 caps 02/09/23 02/13/23 Rx monohydrate/macrocrystals 100 mg capsule (Macrobid) Patient hx anesthesia problems: none Family hx anesthesia problems: none Results Review: All pre-operative results and documents have been reviewed as part of the pre-operative evaluation. [facility] Past Medical History Medical History Anxiety Belching Missed ab and not yet delivered Family History Family History Other No pertinent family history Social History Social History Smoking status: Never smoker Substance use: never Substance use type: does not use Gender identity (if verbalized by the patient): Female Spiritual care concerns: No Anes - Eval Final PreProcedure Day of Procedure 02/13/23 07:58 Patient weight: obese Heart: regular rate and rhythm Lungs: clear to auscultation Airway: Mallampati scale class II Neurological: alert and oriented Last oral intake: >/= 8 hours ASA classification: II Emergent: no Anesthetic plan: proceed Anesthesia type and monitoring: general GIVS and standard monitoring Results Review: All pre-operative results and documents have been reviewed as part of the pre-operative evaluation. Informed Consent: The patient's anesthetic plan and its attendant risks and benefits were discussed with the patient/family/POA. Questions were solicited and answers provided to the satisfaction of the patient/family/POA.
[2023-02-13 08:51] VITALS: BP 108/70; PULSE 81; RESP 18; TEMP 36.2; O2SAT 99
[2023-02-13 09:01] VITALS: BP 115/79; PULSE 89; RESP 18; TEMP 36.2; O2SAT 99
[2023-02-13 09:11] VITALS: BP 116/68; PULSE 80; RESP 22; TEMP 36.2; O2SAT 100
== END 2023-02-13 09:16 | disposition home or self-care (01) ==
PROVIDERS: PCP Internal Medicine; Visit Provider Internal Medicine Gastroenterology
PROC: 0DJ08ZZ Inspection of Upper Intestinal Tract, Via Natural or Artificial Opening Endoscopic (ICD-10-PCS; CPT 43235; principal; 2023-02-13 08:30)
DX: R10.84 Generalized abdominal pain (principal); R14.2 Eructation; E66.9 Obesity, unspecified; Z68.29 Body mass index [BMI] 29.0-29.9, adult
CPT/HCPCS: 43239; 87081; J2704; J7120

== ENCOUNTER → 2023-06-14 09:17 | Outpatient (CLI) | payer BC, SELFPAY ==
--- NOTE | ~2023-06-14 | CT_ITS ---
CT scan of the Neck Technique: 2.5 mm axial scans were obtained through the neck after intravenous administration of 75 c c Omnipaque 350. Coronal and sagittal reconstructions of the neck were obtained. Dose reduction techn ique was used on this scan by utilizing automated exposure control and iterative reconstruction techn ique. The dose-length product (DLP) was 362.29 mGy-cm. Clinical History: Left-sided neck pain and swelling, enlarged tonsils Findings: There is no evidence of any significant cervical lymphadenopathy. Several small, nonenlarged jugulo- digastric and posterior cervical lymph nodes are noted bilaterally. Parapharyngeal spaces appear norm al bilaterally. The parotid and submandibular glands appear normal. Questionable mild prominence of t he palatine tonsils, though there is artifact through this region. The pharyngeal mucosal spaces appear normal. No soft tissue masses are seen in the neck. The thyroid gland appears normal. Images of the lung apices reveal no abnormalities. Impression: Questionable mild prominence of the tonsils. Correlate for chronic tonsillitis. No definite acute inf lammatory change or abscess identified. Reviewed, dictated and finalized at location . Impression: Questionable mild prominence of the tonsils. Correlate for chronic tonsillitis. No definite acute inflammatory change or abscess identified.
== END ==
PROVIDERS: PCP Physician Assistant; Visit Provider Otolaryngology
DX: J35.8 Other chronic diseases of tonsils and adenoids (principal)
CPT/HCPCS: 70491; Q9967

== ENCOUNTER 2023-09-18 08:17 | Outpatient (CLI) | payer BC, SELFPAY ==
--- NOTE | ~2023-09-18 | XR_ITS ---
MODIFIED ESOPHAGRAM HISTORY: Dysphagia. TECHNIQUE: Modified barium esophagram was performed on 09/18/2023. I administered fluoroscopy and per formed the exam with speech pathologist. Patient was seated for lateral fluoroscopic imaging for ing estion of thin liquids, pudding, solids and quantified amounts, followed by thin liquids in uncontrol led amounts. This was recorded on tape. A single fluoroscopic spot image was also recorded. The DAP f or this procedure was 0.756 Gycm2. The amount of fluoroscopy time used during this procedure was 1.1 minutes. FINDINGS: Oral stage: Adequate function. Pharyngeal stage: Adequate function. Cervical/esophageal stage: Adequate function. IMPRESSION: Patient tolerated regular consistency oral feedings in the upright position. Please jose l elate with speech pathologist findings and specific feeding recommendations. Reviewed, dictated and finalized at location A. IMPRESSION: Patient tolerated regular consistency oral feedings in the upright position. Please correlate with speech pathologist findings and specific feedi ng recommendations.
--- NOTE | 2023-09-18 09:24 | REHSTMBS ---
Assessment and note entered by Rupa Meraz, [employer] Modified Barium Swallow Evaluation Feeding Type Recommended Oral Food Consistency Regular, Level 7 Liquid Consistency Thin (0) ST Clinical Summary MODIFIED BARIUM SWALLOW STUDY Patient was seen for a Modified Barium Swallow study at the request of her physician, Dr. Ferraro. Patient reported that she had a tonsillectomy at the end of June of this year and since that time, she reports that she feels a sensation in the back of her throat, even a feeling that there is a hair in her throat, but additionally, she feels compelled to chew dry foods more thoroughly in order to swallow comfortably. Patient denied any choking on solid foods and no difficulty swallowing liquids. This Modified Barium Swallow study was completed in order to assess this patient's risk for aspiration and to determine if she would benefit from dietary modifications and/or compensatory strategies. Patient was viewed in the lateral position to the level of C5/C6. She was presented with uncontrolled thin liquid contrast medium per cup, pudding mixed with semi-solid contrast medium, and then a piece of marcos cracker and also two fruit pieces, both items coated with the semi-solid mixture with thin liquid wash. She exhibited adequate mastication with no evidence of penetration of any material into the airway. Of note, she instinctively swallowed small bite sizes of each of the semi-solid to solid materials that caused her to have to use multiple swallows to clear each bite of food. There was no significant residue in the pharynx at the completion of each set of swallows. Results indicate this patient's swallowing skills are within normal limits. She may remain on a regular diet consistency along with liquid consistency. Patient was instructed in the use of head flexion to assist with swallowing solid foods, along with taking small bites, and alternating solids with liquids to assist with clearing. She is referred back to her physician for further assessment of her complaints.
== END 2023-09-18 08:18 | disposition home or self-care (01) ==
PROVIDERS: PCP Physician Assistant; Visit Provider Otolaryngology
DX: R13.10 Dysphagia, unspecified (principal)
CPT/HCPCS: 92611

== ENCOUNTER 2023-10-19 12:48 | Emergency (ER) | payer BC, SELFPAY ==
--- NOTE | 2023-10-19 12:55 | ED.GENADULT ---
HPI - General Adult General Chief complaint: Upper Respiratory Infection Stated complaint: Sore Throat and Eye Irritation Time Seen by Provider: 10/19/23 12:54 History of Present Illness HPI narrative: 33-year-old female presents at [facility] with complaint of coughing congestion with sore throat started 1 week ago. Patient states cough and congestion are improving the sore throat is worsening. Patient taking [id number] medications with little relief patient states cough is productive of blood-tinged sputum. patient seen at [facility] on Sunday patient negative for COVID flu and strep Related Data Allergies Allergy/AdvReac Type Severity Reaction Status Date / Time No Known Allergies Allergy Verified 10/19/23 13:06 Review of Systems Eyes: Eyes: Reports as per HPI, Reports eye discharge and Reports irritation ENT: Reports sore throat PMFSH Past Medical History Medical History Anxiety Belching Missed ab and not yet delivered Family History Family History Father Hypertension Depression Grandparent Heart disease Cerebrovascular accident Other No pertinent family history Social History Social History Smoking status: Never smoker Substance use: never Substance use type: does not use Lack of Transportation: No Lack of Food: Never True Current Housing: I Have Housing Concerned About Future Housing: No Difficulty Paying Gas/Electric Bills: No Difficulty Paying for Meds: No Currently Unemployed: No Education: Bachelor's Degree Difficulty w/ Childcare or Family Care: No Gender identity (if verbalized by the patient): Female Spiritual care concerns: No Exam Eyes: Sclera: scleral abnormality ( erythema noted bilaterally worse on left side) Course Course Level of Care: [facility] Visit Vital Signs Vital signs: Vital Signs Temperature 97.6 F 10/19/23 13:00 Pulse Rate 109 H 10/19/23 13:00 Respiratory Rate 16 10/19/23 13:00 Blood Pressure 127/87 10/19/23 13:00 Pulse Oximetry 100 10/19/23 13:00 Temperature 97.6 F 10/19/23 13:00 Pulse Rate 109 H 10/19/23 13:00 Respiratory Rate 16 10/19/23 13:00 Blood Pressure 127/87 10/19/23 13:00 Pulse Oximetry 100 10/19/23 13:00 Medical Decision Making MDM Narrative Medical decision making narrative: patient is sitting comfortably in room without signs or symptoms acute distress. Patient vital signs stable. Patient positive for strep at this visit. Patient is stable for discharge home and outpatient treatment of strep throat with instructions to follow-up with PCP as needed Differential Diagnosis Differential Diagnosis: tonsillitis, strep throat, viral pharyngitis, viral upper respiratory infection Vital Signs Vital Signs: Vital Signs Temperature 97.6 F 10/19/23 13:00 Pulse Rate 109 H 10/19/23 13:00 Respiratory Rate 16 10/19/23 13:00 Blood Pressure 127/87 10/19/23 13:00 Pulse Oximetry 100 10/19/23 13:00 Temperature 97.6 F 10/19/23 13:00 Pulse Rate 109 H 10/19/23 13:00 Respiratory Rate 16 10/19/23 13:00 Blood Pressure 127/87 10/19/23 13:00 Pulse Oximetry 100 10/19/23 13:00 Discharge Plan Discharge Clinical Impression: Strep pharyngitis Patient Disposition: Home, Self-Care Condition: Stable Instructions: Antibiotic Form, Strep Throat (ED) Additional Instructions: take antibiotics as directed until completed. salt water gargles may help with pain After 36 hours on antibiotics throw tooth brush away and start using a new one. Do not share drinks. Take Motrin alternating with Tylenol for pain and fever alternating every 4 hours. Increase fluids, avoid caffeine. Follow up with Primary provider if not getting better this week Prescr
[2023-10-19 13:00] VITALS: BP 127/87; PULSE 109; RESP 16; TEMP 36.4; O2SAT 100
== END 2023-10-19 13:33 | disposition home or self-care (01) ==
PROVIDERS: Emergency Provider Registered Nurse; PCP Physician Assistant
DX: J02.0 Streptococcal pharyngitis (principal)
CPT/HCPCS: 87880; 99213; G0463

== ENCOUNTER 2024-02-20 08:24 | Emergency (ER) | payer BC, SELFPAY ==
--- NOTE | 2024-02-20 08:29 | ED.URI ---
HPI - URI/Sore Throat General Chief Complaint: Upper Respiratory Infection Stated Complaint: SORE THROAT/EARACHE Time Seen by Provider: 02/20/24 08:27 Source: patient Mode of arrival: ambulatory Limitations: no limitations History of Present Illness HPI Narrative: Patient is a 33-year-old female who presents with 10 days of sore throat and earache. Patient is also had congestion which has slightly resolved. Patient had tonsils removed in June but has had strep since. Patient also has history of ear infections. Denies any fever, chills, nausea, vomiting, diarrhea. Patient has tried Motrin mild relief. Related Data Allergies Allergy/AdvReac Type Severity Reaction Status Date / Time No Known Allergies Allergy Verified 02/20/24 08:31 Review of Systems Review of Systems: All systems reviewed & are unremarkable except as noted in HPI and below Constitutional: Constitutional: Denies body ache(s), Denies chills, Denies fatigue, Denies fever(s), Denies headache(s), Denies malaise and Denies weakness Eyes: Eyes: Denies blurry vision, Denies itchy eyes and Denies loss of vision ENT: Reports otalgia, Denies headache(s), Reports nasal congestion, Denies sinus pain and Reports sore throat Cardiovascular: Cardiovascular: Denies chest pain, Denies irregular heart rhythm and Denies dyspnea Respiratory: Respiratory: Denies cough and Denies dyspnea Gastrointestinal: Gastrointestinal: Denies abdominal pain, Denies diarrhea, Denies nausea and Denies vomiting Musculoskeletal: Musculoskeletal: Denies back pain, Denies myalgias and Denies arthralgias Integumentary/Breasts: Skin/Breast: Denies pruritus and Denies rash Neurologic: Denies headache(s), Denies loss of vision and Denies weakness Psychiatric: Psychiatric: Reports no additional psychiatric complaints Endocrine: Endocrine: Denies fatigue Allergic/Immunologic: Allergic/Immunologic: Denies itchy eyes PMFSH Past Medical History Medical History Anxiety Belching Missed ab and not yet delivered Family History Family History Father Hypertension Depression Grandparent Heart disease Cerebrovascular accident Other No pertinent family history Social History Social History (Reviewed 02/20/24 @ 08:33 by GEORGE Ram Smoking status: Never smoker Substance use: never Substance use type: does not use Lack of Transportation: No Lack of Food: Never True Current Housing: I Have Housing Concerned About Future Housing: No Difficulty Paying Gas/Electric Bills: No Difficulty Paying for Meds: No Currently Unemployed: No Education: Bachelor's Degree Difficulty w/ Childcare or Family Care: No Gender identity (if verbalized by the patient): Female Spiritual care concerns: No Comments At time of signature, agree with nursing past medical, surgical, social and family history. There is no relevant family history pertinent to the presenting complaint. Exam Const: General: cooperative, healthy appearing, comfortable, no acute distress and well nourished Nutritional Appearance: well nourished Orientation/consciousness: patient oriented x3 Limitations: no limitations HENMT: Head: normal to inspection, normocephalic and atraumatic Ears: hearing grossly normal bilaterally, external ears normal, TM's normal bilaterally, EAC's normal and no periauricular adenopathy Face/Nose/Sinus: Normal external nose present, Abnormal mucous membranes and turbinates present erythematous bilateral and diffuse, normal facial exam, sinuses nontender and face symmetric Face and sinus: normal facial exam, sinuses nontender and face symmetric Mouth: Yes Normal oral and palatal mucosa present, Yes lip normal, Yes tongue normal, Yes Normal salivary glands and ducts present, Yes oropharynx normal and Yes moist mucous membranes Teeth and gingiva: dentit
[2024-02-20 08:32] VITALS: BP 126/85; PULSE 95; RESP 18; TEMP 36.4; O2SAT 100
== END 2024-02-20 08:59 | disposition home or self-care (01) ==
PROVIDERS: Emergency Provider Nurse Practitioner Family; PCP Physician Assistant
DX: J02.9 Acute pharyngitis, unspecified (principal)
CPT/HCPCS: 99213; G0463

== ENCOUNTER 2024-12-12 15:18 | Outpatient (CLI) | payer BC, SELFPAY ==
[2024-12-12 16:04] LABS: Beta HCG Quantitative < 2.39 mIU/ML
[2024-12-13 05:49] LABS: Progesterone 1.6 ng/mL
--- OUTSIDE RECORDS SUMMARY | 2024-12-18 07:12 | XMS_ITS ---
Author Organization [facility] Address [address] [place] [address] Phone Care Team Providers Care Command And Control Name Role Phone PATTI ALMONTE, JEFERSON Dawn Unavailable [phone] CHERYL ALMONTE, ELHAM Primary Care Provider [phone] Problems Includes: Active, inactive, and resolved Problems No Active Problems Plan of Treatment Findings Encounter Date Ordered Clinical summary pro vided to patient RECRUITING AND SELECTION CONSULTANT EXAM with NAEEM DELA CRUZ NP-BC 09/16/2018 Last Documented On 8 11:06AM ; [facility] Ordered Clinical summary pro vided to patient PROCEDURE OFFICE with NAEEM DELA CRUZ NP-BC 07/31/2018 Last Documented On 8 1:04PM ; [facility] Ordered Clinical summary pro vided to patient RECRUITING AND SELECTION CONSULTANT EXAM with NAEEM DELA CRUZ NP-BC 08/30/2016 Last Documented On 6 3:23PM ; [facility] Ordered Clinical summary pro vided to patient PROCEDURE OFFICE with NAEEM DELA CRUZ NP-BC 08/27/2015 Last Documented On 5 11:18AM ; [facility] Ordered Clinical summary pro vided to patient RECRUITING AND SELECTION CONSULTANT EXAM with NAEEM DELA CRUZ NP-BC 08/18/2015 Last Documented On 5 1:53PM ; [facility] Ordered Clinical summary pro vided to patient BREAST EXAM with NAEEM DELA CRUZ NP-BC 06/28/2015 Last Documented On 5 9:11AM ; [facility] Ordered Clinical summary pro vided to patient RECRUITING AND SELECTION CONSULTANT EXAM with NAEEM DELA CRUZ [facility]-BC 08/03/2014 Last Documented On 4 11:42AM ; [facility] Ordered Clinical summary pro vided to patient RECRUITING AND SELECTION CONSULTANT EXAM with NAEEM DELA CRUZ NP-BC 07/18/2013 Last Documented On 3 1:57PM ; [facility] Ordered Clinical summary pro vided to patient 1 MONTH CHECK with NAEEM DELA CRUZ [facility]-BC 10/23/2012 Last Documented On 2 4:01PM ; [facility] Ordered Clinical summary pro vided to patient IMPLANON with NAEEM DELA CRUZ [facility]- 09/18/2012 Last Documented On 2 4:15PM ; [facility] Declines STD testing - would like less expensive ocp RECRUITING AND SELECTION CONSULTANT EXAM with NAEEM DELA CRUZ [facility]-BC 01/03/2012 Last Documented On 2 3:34PM ; [facility] Instructions to patient Instructions for patient : B reast Self Exam discussed Last Documented On 8 10:50AM ; [facility] Lose weight Last Documented On 8 10:51AM ; [facility] Gardasil information given a nd series encouraged Series completed! Last Documented On 8 10:51AM ; [facility] Instructions for patient : B reast Self Exam discussed Last Documented On 7 9:03AM ; [facility] Gardasil information given a nd series encouraged Series completed! Last Documented On 7 9:04AM ; [facility] Safe sex counseling Last Documented On 7 9:04AM ; [facility] Instructions for patient : B reast Self Exam discussed Last Documented On 6 3:00PM ; [facility] Gardasil information given a nd series encouraged Series completed! Last Documented On 6 3:01PM ; [facility] Safe sex counseling Last Documented On 6 3:01PM ; [facility] Instructions for patient : B reast Self Exam discussed Last Documented On 5 1:25PM ; [facility] Gardasil information given a nd series encouraged Series completed! Last Documented On 5 1:26PM ; [facility] Safe sex counseling Last Documented On 5 1:26PM ; [facility] Instructions for patient Althea l for any palpable lumps Last Documented On 5 9:10AM ; [facility] Instructed to decrease carbo nation and caffeine Last Documented On 5 9:10AM ; [facility] Instructions For Patient: Mo nthly Self Breast Exam Last Documented On 5 9:10AM ; [facility] Instructions for patient : B reast Self Exam discussed Last Documented On 4 11:28AM ; [facility] Gardasil information given a nd series encouraged Series completed! Last Documented On 4 11:29AM ; [facility] Safe sex counseling Last Documented On 4 11:29AM ; [facility] Return to the clinic if cond ition worsens or new symptoms arise Last Documented On 4 9:34AM ; [facility] ER/ Pain Precautions Last Documented On 4 9:34AM ; [facility] Safe sex counseling States i s using condoms 100% Last Documented On 4 9:55AM ; [facility] Instructions for patient : B reast Self Exam discussed Last Documented On 3 1:47PM ; [facility] Gardasil information given a nd series encouraged Series completed! Last Documented On 3 1:48PM ; [facility] Safe sex counseling Last Documented On 3 1:48PM ; [facility] Gardasil information given a nd series encouraged done x 3 doses Last Documented On 2 3:34PM ; [facility] Safe sex counseling Last Documented On 2 3:34PM ; [facility] Instructions for patient Althea l for any palpable lumps Last Documented On 1 4:25PM ; [facility] Instructed to decrease carbo nation and caffeine Last Documented On 1 4:25PM ; [facility] Instructions For Patient: Mo nthly Self Breast Exam Last Documented On 1 4:25PM ; [facility] Instructions for patient : B reast Self Exam discussed and technique reviewed Last Documented On 1 8:58AM ; [facility] Recommend diet and exercise at least 30 min three times per week Last Documented On 1 8:58AM ; [facility] Recommend preventative vacci nation including but not limited to influenza/flu vaccine, DTP, Rubella, Hepatitis B vaccination series Last Documented On 1 8:58AM ; [facility] Education and Decision Aids were provided during visit for: Patient Education: Daily althea cium and vitamin D Last Documented On 8 10:50AM ; [facility] Patient Education: weight be aring exercise Last Documented On 8 10:50AM ; [facility] Patient Education: Daily althea cium and vitamin D Last Documented On 7 9:03AM ; [facility] Patient Education: weight be aring exercise Last Documented On 7 9:03AM ; [facility] Patient Education: Daily althea cium and vitamin D Last Documented On 6 3:00PM ; [facility] Patient Education: weight be aring exercise Last Documented On 6 3:00PM ; [facility] Patient Education: Daily althea cium and vitamin D Last Documented On 5 1:25PM ; [facility] Patient Education: weight be aring exercise Last Documented On 5 1:25PM ; [facility] Patient Education: Daily althea cium and vitamin D Last Documented On 4 11:28AM ; [facility] Patient Education: weight be aring exercise Last Documented On 4 11:28AM ; [facility] Patient Education: Daily althea cium and vitamin D Last Documented On 3 1:47PM ; [facility] Patient Education: weight be aring exercise Last Documented On 3 1:47PM ; [facility] Patient Education: weight be aring exercise Last Documented On 2 3:34PM ; [facility] control consent review ed and signed Last Documented On 2 3:34PM ; [facility] control consent review ed and signed Not sexually active for over 1 year Last Documented On 1 4:26PM ; [facility] Assessments Includes: Assessments for all patient encounters Findings Encounter Date NORMAL FEMALE EXAM RECRUITING AND SELECTION CONSULTANT EXAM with NAEEM Pettit HNP-BC 09/16/2018 Last Documented On 8 11:06AM ; [facility] NORMAL FEMALE EXAM RECRUITING AND SELECTION CONSULTANT EXAM with NAEEM Pettit HNP-BC 09/14/2017 Last Documented On 7 9:27AM ; [facility] NORMAL FEMALE EXAM RECRUITING AND SELECTION CONSULTANT EXAM with NAEEM Pettit HNP-BC 08/30/2016 Last Documented On 6 3:23PM ; [facility] Contraceptive management 1 MONTH CHECK with LIZZY DELA CRUZ WHNP-BC 09/27/2015 Last Documented On 5 1:51PM ; [facility] Contraceptive management PROCEDURE OFFICE with López DELA CRUZ WHNP-BC 08/27/2015 Last Documented On 5 11:18AM ; [facility] Contraceptive surveillance PROCEDURE OFFICE with NAEEM DELA CRUZ NP-BC 08/27/2015 Last Documented On 5 11:18AM ; [facility] NORMAL FEMALE EXAM RECRUITING AND SELECTION CONSULTANT EXAM with NAEEM DELA CRUZ W HNP-BC 08/18/2015 Last Documented On 5 1:53PM ; [facility] Fibrocystic disease of breast BREAST EXAM with López DELA CRUZ WHNP-BC 06/28/2015 Last Documented On 5 9:11AM ; [facility] NORMAL FEMALE EXAM RECRUITING AND SELECTION CONSULTANT EXAM with NAEEM DELA CRUZ W HNP-BC 08/03/2014 Last Documented On 4 11:42AM ; [facility] NORMAL FEMALE EXAM RECRUITING AND SELECTION CONSULTANT EXAM with NAEEM Pettit HNP-BC 07/18/2013 Last Documented On 3 1:57PM ; [facility] Contraceptive surveillance 1 MONTH CHECK with MARINA NORTON Ephraim DELA CRUZ NP-BC 10/23/2012 Last Documented On 2 4:01PM ; [facility] Contraceptive surveillance IMPLANON with NAEEM DELA CRUZ NP-BC 09/18/2012 Last Documented On 2 4:15PM ; [facility] Contraceptive surveillance CONSULTATION with HELENA DELA CRUZ WHNP-BC 08/09/2012 Last Documented On 2 1:39PM ; [facility] NORMAL FEMALE EXAM RECRUITING AND SELECTION CONSULTANT EXAM with NAEEM DELA CRUZ [facility] 01/03/2012 Last Documented On 2 3:34PM ; [facility] Breast fibrocystic disease PROBLEM VISIT with MARINA Ye DELA CRUZ [facility] 05/15/2011 Last Documented On 1 4:30PM ; [facility] NORMAL FEMALE EXAM NEW RECRUITING AND SELECTION CONSULTANT EXAM with SHILA VÁZQUEZ 01/02/2011 Last Documented On 1 9:26AM ; [facility] Instructions Includes: Instructions for all patient encounters Instructions to patient Instructions for patient : B reast Self Exam discussed Last Documented On 8 10:50AM ; [facility] Lose weight Last Documented On 8 10:51AM ; [facility] Gardasil information given a nd series encouraged Series completed! Last Documented On 8 10:51AM ; [facility] Instructions for patient : B reast Self Exam discussed Last Documented On 7 9:03AM ; [facility] Gardasil information given a nd series encouraged Series completed! Last Documented On 7 9:04AM ; [facility] Safe sex counseling Last Documented On 7 9:04AM ; [facility] Instructions for patient : B reast Self Exam discussed Last Documented On 6 3:00PM ; [facility] Gardasil information given a nd series encouraged Series completed! Last Documented On 6 3:01PM ; [facility] Safe sex counseling Last Documented On 6 3:01PM ; [facility] Instructions for patient : B reast Self Exam discussed Last Documented On 5 1:25PM ; [facility] Gardasil information given a nd series encouraged Series completed! Last Documented On 5 1:26PM ; [facility] Safe sex counseling Last Documented On 5 1:26PM ; [facility] Instructions for patient Althea l for any palpable lumps Last Documented On 5 9:10AM ; [facility] Instructed to decrease carbo nation and caffeine Last Documented On 5 9:10AM ; [facility] Instructions For Patient: Mo nthly Self Breast Exam Last Documented On 5 9:10AM ; [facility] Instructions for patient : B reast Self Exam discussed Last Documented On 4 11:28AM ; [facility] Gardasil information given a nd series encouraged Series completed! Last Documented On 4 11:29AM ; [facility] Safe sex counseling Last Documented On 4 11:29AM ; [facility] Return to the clinic if cond ition worsens or new symptoms arise Last Documented On 4 9:34AM ; [facility] ER/ Pain Precautions Last Documented On 4 9:34AM ; [facility] Safe sex counseling States i s using condoms 100% Last Documented On 4 9:55AM ; [facility] Instructions for patient : B reast Self Exam discussed Last Documented On 3 1:47PM ; [facility] Gardasil information given a nd series encouraged Series completed! Last Documented On 3 1:48PM ; [facility] Safe sex counseling Last Documented On 3 1:48PM ; [facility] Gardasil information given a nd series encouraged done x 3 doses Last Documented On 2 3:34PM ; [facility] Safe sex counseling Last Documented On 2 3:34PM ; [facility] Instructions for patient Althea l for any palpable lumps Last Documented On 1 4:25PM ; [facility] Instructed to decrease carbo nation and caffeine Last Documented On 1 4:25PM ; [facility] Instructions For Patient: Mo nthly Self Breast Exam Last Documented On 1 4:25PM ; [facility] Instructions for patient : B reast Self Exam discussed and technique reviewed Last Documented On 1 8:58AM ; [facility] Recommend diet and exercise at least 30 min three times per week Last Documented On 1 8:58AM ; [facility] Recommend preventative vacci nation including but not limited to influenza/flu vaccine, DTP, Rubella, Hepatitis B vaccination series Last Documented On 1 8:58AM ; [facility] Education and Decision Aids were provided during visit for: Patient Education: Daily althea cium and vitamin D Last Documented On 8 10:50AM ; [facility] Patient Education: weight be aring exercise Last Documented On 8 10:50AM ; [facility] Patient Education: Daily althea cium and vitamin D Last Documented On 7 9:03AM ; [facility] Patient Education: weight be aring exercise Last Documented On 7 9:03AM ; [facility] Patient Education: Daily althea cium and vitamin D Last Documented On 6 3:00PM ; [facility] Patient Education: weight be aring exercise Last Documented On 6 3:00PM ; [facility] Patient Education: Daily althea cium and vitamin D Last Documented On 5 1:25PM ; [facility] Patient Education: weight be aring exercise Last Documented On 5 1:25PM ; [facility] Patient Education: Daily althea cium and vitamin D Last Documented On 4 11:28AM ; [facility] Patient Education: weight be aring exercise Last Documented On 4 11:28AM ; [facility] Patient Education: Daily althea cium and vitamin D Last Documented On 3 1:47PM ; [facility] Patient Education: weight be aring exercise Last Documented On 3 1:47PM ; [facility] Patient Education: weight be aring exercise Last Documented On 2 3:34PM ; [facility] control consent review ed and signed Last Documented On 2 3:34PM ; [facility] control consent review ed and signed Not sexually active for over 1 year Last Documented On 1 4:26PM ; [facility] Medical Equipment - Implanted Devices Includes: Current and historical Devices No Medical Equipment Recorded Medications Includes: Current and historical Medications Past Medications on file Nexplanon 68 MG Implant 08/27/2015 - 09/16/2018 Provid er: Diagnosis: left arm Last Documented On 8 10:58AM By ROHIT LOU ; [facility] Nexplanon 68 MG SC IMPL 09/18/2012 - 08/27/2015 Provid er: Diagnosis: Last Documented On 5 11:06AM By NAEEM DELA CRUZ FRANNY- ; [facility] Microgestin FE 1/20 1-20 MG-MCG OR TABS 08/09/2012 - 09/08/2012 Provider: NAEEM DELA CRUZ ART COORDINATOR-BC Diagnosis: Last Documented On 2 1:39PM By NAEEM DELA CRUZ FRANNY- ; [facility] Loestrin 24 Fe 1-20 MG-MCG OR TABS 05/27/2012 - 08/09/2012 Provider: SINAI CROWDER RN NP BC Diagnosis: PRESCRIP-ORAL CONTRACEPT USE DIRECTED Last Documented On 2 1:39PM By NAEEM DELA CRUZ FRANNY- ; [facility] Sprintec 28 0.25-35 MG-MCG O R TABS 01/03/2012 - 05/27/2012 Provider: NAEEM DELA CRUZ ART COORDINATOR-BC Diagnosis: Last Documented On 2 10:45AM By SINAI CROWDER FRANNY-BC ; [facility] Loestrin 24 Fe 1-20 MG-MCG O R TABS 11/06/2011 - 01/03/2012 Provider: NAEEM DELA CRUZ ART COORDINATOR-BC Diagnosis: Last Documented On 2 3:24PM By NAEEM DELA CRUZ FRANNY-BC ; [facility] Loestrin 24 Fe 1-20 MG-MCG O R TABS 05/15/2011 - 11/06/2011 Provider: NAEEM DELA CRUZ ART COORDINATOR-BC Diagnosis: 2 samples given today. Last Documented On 1 9:39AM By NAEEM DELA CRUZ FRANNY-BC ; [facility] Medications Administered Includes: Administered Medications in patient's chart No Administered Medications Recorded Results Includes: Results from 12/18/2023 through 12/18/2024 No Results Recorded For Specified Dates History of Present Illness History of Present Illness not supported for this document type No History of Present Illness Recorded Social History Description Last Updated In monogamous relationship 09/16/2018 Last Documented On 8 11:06AM ; [facility] Non-smoker 09/16/2018 Last Documented On 8 11:06AM ; [facility] Not using alcohol 09/16/2018 Last Documented On 8 11:06AM ; [facility] Not using drugs 09/16/2018 Last Documented On 8 11:06AM ; [facility] Sexually active with 1 partners in the l ast year 09/16/2018 Last Documented On 8 11:06AM ; [facility] Social history unchanged 09/16/2018 Last Documented On 8 11:06AM ; [facility] Smoking status : Never smoker 09/16/2018 Last Documented On 8 11:06AM ; [facility] The racial background 09/16/2018 Last Documented On 8 11:06AM ; [facility] The racial background is 09/16 Last Documented On 8 11:06AM ; [facility] Hoahaoism: Advent 08/27/2015 Last Documented On 5 11:18AM ; [facility] Episcopalian affiliation 08/27/2015 Last Documented On 5 11:18AM ; [facility] Medical History Includes: Medical History in patient's chart Description Last Updated No recent change in medical history 08/27 Last Documented On 8 11:06AM ; [facility] Not using contraception 09/16/2018 Last Documented On 8 11:06AM ; [facility] Sexually active 09/16/2018 Last Documented On 8 11:06AM ; [facility] LMP: 08/26/2018 09/16/2018 Last Documented On 8 11:06AM ; [facility] History of Pap smear done 09/14/2017 Last Documented On 8 11:06AM ; [facility] Result: normal 09/16/2018 Last Documented On 8 11:06AM ; [facility] 0 08/27/2015 Last Documented On 5 11:18AM ; [facility] History of Gardasil 08/27/2015 Last Documented On 5 11:18AM ; [facility] Family History Includes: Family History in patient's chart Description Last Updated Family history unchanged 09/16/2018 Last Documented On 8 11:06AM ; [facility] Spouse name: Sarabjit 08/30/2016 Last Documented On 6 3:23PM ; [facility] Review of Systems Review of Systems not supported for this document type No Review of Systems Recorded Mental Status No Mental Status Recorded Functional Status No Functional Status Recorded Physical Exam Physical Exam not supported for this document type No Physical Exam Recorded Immunizations Includes: Immunizations in patient's chart Vaccine Dose # Date Site Reaction(s) Status Source HPV, (quadrivalent) Gardasil 1 02/27/2006 Complete (Reported) Patient Last Documented On 1 9:20AM ; [facility] HPV, (quadrivalent) Gardasil 2 05/01/2006 Complete (Reported) Patient Last Documented On 1 9:20AM ; [facility] HPV, (quadrivalent) Gardasil 3 10/02/2006 Complete (Reported) Patient Last Documented On 1 9:20AM ; [facility] Allergies Includes: Active, inactive, and resolved Allergies No Known Allergies Insurance Includes: Active Insurance Policies Plan Name Member ID Group # Subscriber Relationship Effect shorty Dates 1 - [facility] [id number] SARABJIT GERARDO Clinical Notes Includes: Signed Clinical Notes starting from 12/15/2022 No Clinical Notes Recorded
--- OUTSIDE RECORDS SUMMARY | 2024-12-18 07:12 | XMS_ITS ---
Care Plan - [facility] Created on: December 18, 2024 ROSI GERARDO : 1990 Sex: Female Author Organization [facility] Address [address] [place] [address] Phone Care Team Providers Care Machine Try Out Setter Name Role Phone PATTI ALMONTE, JEFERSON C Unavailable [phone] CHERYL ALMONTE, ELHAM Primary Care Provider [phone]
--- OUTSIDE RECORDS SUMMARY | 2024-12-18 07:12 | XMS_ITS | Data Portability ---
Author Organization [place] - [facility], Main Office Address [address] [place] [address] Assessment No assessment recorded. Plan of Treatment Reminders Order Date Submit Date Provider Last Modified By Organization Details Last Modified Time Details Appointments None recorded. Lab None recorded. Referral None recorded. Procedures None recorded. Surgeries None recorded. Imaging None recorded. Medication Orders Medrol (Nas) 4 mg tablets in a dose pack 2022 023 [id number], [address], [place], [phone], 10:21:37 cefdinir 300 mg capsule 2022 023 [id number], [address], [place], [phone], 10:21:35 Patient TargetsNo targets recorded. Patient Instructions Encounter Date Encounter Id Patient Instructions Last Modified By Organization Details Last Modified Time 06/20/2023 [id number] this patient sandra l consider whether or not tonsillectomy is appropriate for her and get back to us. Not available 06/20/2023 10:55:58 08/02/2023 [id number] she will return as needed Not available 08/02/2023 14:36:39 Reason for Referral None Reported. Results Created Date Observation Date Name Description Value Unit Range Abnormal Flag Note LastModifiedBy Organization Detail LastModifiedTime 06/20/20 CT, neck, w/ contr ast No observ ation record ed. [email or web address] Not Available 2022 11:14:47 09/18/2009/18/2023 elizabeth BYERSall ow study No observ ation record ed. [address], [place], [address], 09/19/2023 10:03:33 10/01/2009/18/2023 [place], modif ied cora wells study No observ ation record ed. [facility] [address], [place], [address], 10/03/2023 09:06:01 10/04/2009/18/2023 [place], modif ied cora wells study No observ ation record ed. [address], [place], [address], 10/08/2023 14:46:38 Result Notes None recorded. Problems Name Problem SNOMED Code Status Onset Date Resolution Date Notes Provider Name and Address Organization Details Recorded Time Acute tonsillitis 86735012 Active 2022 Kasi Ferraro MD [address], [address], [place], [address], [facility] 3 12:06:37 Chronic tonsillitis 83916945 Active 2022 Kasi Ferraro MD [address], [address], [place], [address], [facility] 3 10:55:46 Postoperative pain 071089546 Active 2022 Kasi Ferraro MD [address] [facility], [address], [place], [address], [facility] 3 15:31:49 Dysphagia 67161154 Active 2022 Janee Shaw RN null, [facility] 3 16:41:26 Problem Notes None recorded. Procedures Surgical History Date Name Laterality Status Provider Name and Address Organization Details Recorded Time 3 tonsillectomy completed Janee Shaw RN [facility] 08/01/2023 10:01:11 Imaging Results Imaging Date Name Status LastModified by Organiz ation Details LastModified Time 06/20/2023 CT, neck, w/ contrast completed [facility] Information not available 06/20/2023 11:14:47 09/18/2023 [place], modified barium swallow study completed [address] [facility] [address], [place], [address], 09/19/2023 10:03:33 09/18/2023 [place], modified barium swallow study completed [facility] [address], [place], [address], 10/03/2023 09:06:01 09/18/2023 [place], modified barium swallow study completed [address], [place], [address], 10/08/2023 14:46:38 Procedure Notes None recorded. Medical Equipment None Reported. Allergies No known drug allergies Medications Name Sig Start Date Stop Date Status Note LastModified by Organization Details LastModified Time clarithromyc in 500 mg tablet 08/01 completed Not Available Not Available Not Available sucralfate 1 gram tablet active Not Available Not Available Not Available omeprazole 20 mg capsule,maddi yed release active Not Available Not Available Not Available methylpredni solone 4 mg tablets in a dose pack Take 1 dose pk by oral route. 06/19 completed Not Available Not Available Not Available cefdinir 300 mg capsule Take 1 capsule every 12 hours by oral route. 06/19 completed Not Available Not Available Not Available amoxicillin 875 mg-potassium clavulanate 125 mg tablet 08/01 completed Not Available Not Available Not Available hydrocodone 7.5 mg-acetamino phen 325 mg/15 mL oral solution Take 15 mL every 4 hours by oral route. 09/12 completed Not Available Not Available Not Available nitrofuranto in monohydrate/ macrocrystal s 100 mg capsule active Not Available Not Available Not Available chlorhexidin e gluconate 0.12 % mouthwash active Not Available Not Available No t Available Vitals Date Recorded Body weight Body mass index (BMI) Body height Body temperature Provider Name and Address Organization Details Last Updated DateTime 05/08/2023 29116.63 g 30 kg/m2 165.1 cm 97.6 [degF] Sobeida Baptiste CMA [facility] 05/08/2023 11:38:25 Date Recorded Body height Body mass index (BMI) Body weight Body temperature Provider Name and Address Organization Details Last Updated DateTime 06/20/2023 165.1 cm 29.9 kg/m2 70096.91 g 98 [degF] Janee Shaw RN [facility] 06/20/2023 10:31:40 Date Recorded Body height Body mass index (BMI) Body weight Body temperature Provider Name and Address Organization Details Last Updated DateTime 08/02/2023 165.1 cm 28.8 kg/m2 99935.76 g 97.7 [degF] Jaene Shaw RN [facility] 08/02/2023 14:22:23 Date Recorded Body height Body mass index (BMI) Body weight Body temperature Provider Name and Address Organization Details Last Updated DateTime 09/12/2023 165.1 cm 30.1 kg/m2 16867.22 g 98.4 [degF] Janee Shaw RN [facility] 09/12/2023 16:23:31 Social History Question Answer Notes LastModified by Organizat ion Details LastModified Time Tobacco Smoking Status Never Smoker Sobeida Baptiste CMA null, [facility] 05/07/2023 11:57:02 What Is Your Level Of Alcohol Consumption? None [email or web address] Information not available 05/07/2023 Sex: Unknown Functional Status None recorded. Mental Status None recorded. Family History Relationship Description Onset Age of this Age Resolved Age Notes LastModified by Organization Details LastModified Time Father No current problems or disability [email or web address] Not available 06/19 10:21:41 Mother No current problems or disability [email or web address] Not available 06/19 10:21:41 Medical History Condition Response MRSA N ALLERGIES/HAYFEVER N BACK INJECTIONS N LUNG DISEASE/DISORDER N INSOMNIA N HISTORY OF DRUG ABUSE N ESRD N RADIATION / CHEMOTHERAPY N COPD N HIGH CHOLESTEROL / HYPERLIPIDEMIA N HYPERTHYROIDISM N PVD N BLOOD DISEASES N EAR OR HEARING PROBLEMS N HYPOTHYROIDISM N SHINGLES N DEPRESSION (INCLUDING POST ) N BACK / NECK PROBLEMS N HAVE YOU BEEN HOSPITALIZED OR SEEN IN [facility] ER IN THE PAST YEAR ? N FAILED BACK SYNDROME N STROKE/TIA N POLYCYSTIC OVARIES N OBESITY N ANEURYSM N HISTORY WITH COMPLICATIONS WITH ANESTHES [place] ? N Do you have Advance directive? N USE OF BLOOD THINNERS N NO SIGNIFICANT PAST MEDICAL HISTORY N DIABETES, TYPE N VON WILLIBRAND'S DISEASE N PARATHYROID DISEASE N ENT N SEASONAL ALLERGIES N HEARTBURN / REFLUX N POST LAMINECTOMY SYNDROME N HEPATITIS / LIVER DISEASE N SLEEP DISORDER N ARTERIAL INSUFFICIENCY N HEADACHES/MIGRAINES N SEIZURES/EPILEPSY N CHF N PACEMAKER N DIZZINESS N HEART DISEASE/HEART PROBLEMS N AIDS/HIV N NEUROPSYCHOLOGICAL N HYPERTENSION N CANCER: SPECIFY N TOURETTE'S N BLOOD TRANSFUSION N ANESTHESIA COMPLICATIONS N ANEMIA/BLOOD DISORDER N CHRONIC EAR INFECTIONS N ATRIAL FIBRILLATION N AUTOIMMUNE DISEASE N TUBERCULOSIS N Gynecological HistoryNo gynecological history recorded. Obstetrics History GPAL:G 0 P 0 0 0 0 Past Encounters Encounter ID Performer Location Encounter Start Date Encounter Closed Date Diagnosis/Indication Diagnosis SNOMED-CT Code Diagnosis ICD10 Code Diagnosis Note [id number] Kasi Ferraro MD [facility] [address] [place] [address] 05/08/2023 11:30:27 05/08/2023 12:17:35 Acute tonsillitis 24633646 J03.90 [id number] [facility] [address] [place] [address] 06/20/2023 09:50:34 06/20/2023 11:19:40 Acute tonsillitis 99108431 J03.90 Chronic tonsillitis 9097 9004 J35.01 [id number] K[facility] [address] [place] [address] 08/02/2023 14:16:35 08/02/2023 14:53:56 Chronic tonsillitis 29726600 J35.01 [id number] [facility] [address] [place] [address] 09/12/2023 16:09:35 09/12/2023 16:55:35 Dysphagia 41777394 R13.10 Health Concerns Section Related Observation LastModified by Organization Detai ls LastModified Time None Recorded Concern Status LastModified by Organization Details LastModified Time None Recorded Advance Directives Directive None Recorded Payers Encounter Date Sequence Insurance Name Policy Number Policy Lang Covered Member ID Lang Member ID Guarantor Name 05/08/2023 1 [place] [id number] Patrick Hercules [id number] Amy Woelfel 06/20/2023 1 [place] [id number] Patrick Luna Woelfel [id number] Amy Woelfel 08/02/2023 1 [place] [id number] Patrick Luna Woelfel [id number] Amy Woelfel 09/12/2023 1 [place] [id number] Patrick Walterselfisaiah [id number] Amy Woelfisaiah Notes Date Note Type Note Provider Name and Address Organization Details Recorded Time 05/08/2023 text/html this patient reports tonsillitis for the pas 4 weeks. This resulted in referred pain to the left ear and she was placed on Augmentin which did help. She still reports scratchiness in her throat and some residual soreness on the left side with left otalgia. Kasi Ferraro MD [address], [address], [place], [address], [employer] [facility] 05/08/2023 12:07:37 06/20/2023 text/html This patient continues to have tonsillitis and did get a 2nd opinion which resulted in a neck CT. The CT was consistent with tonsillitis Kasi Ferraro MD [address], [address], [place], [address], [facility] 06/20/2023 10:56:15 08/02/2023 text/html patient has had the typical week following tonsillectomy Kasi Ferraro MD [address], [address], [place], [address], [employer] [facility] 08/02/2023 14:36:58 09/12/2023 text/html this patient is 4 weeks following a tonsillectomy. She now reports that she has dysphagia enough feeling of constriction of her throat. There has been no unintended weight loss no choking or Heimlich maneuver. She reports that the tenderness that she had is dissipating. Kasi Ferraro MD [address] [place] [address], [facility] [address], [place], [address], [place] [facility] [place] Enabled Employment 09/12/2023 16:43:52 OBGyn Episode No OBEpisode recorded.
--- OUTSIDE RECORDS SUMMARY | 2024-12-18 07:13 | XMS_ITS | Clinical Summary ---
Author Organization [facility] Address [address] [place] [address] Phone Care Team Providers Care Metrology Engineer Name Role Phone PATTI ALMONTE, JEFERSON C Unavailable [phone] CHERYL ALMONTE, ELHAM Primary Care Provider [phone] Reason for Visit and Chief Complaint gynecologic annual exam - The Chief Complaint is: Annual-will start seeking next year after nexplanon expires Problems Includes: Problems addressed during this encounter and other active Problems No Active Problems Plan of Treatment Instructions to patient Instructions for patient : B reast Self Exam discussed Last Documented On 7 9:03AM ; [facility] Gardasil information given a nd series encouraged Series completed! Last Documented On 7 9:04AM ; [facility] Safe sex counseling Last Documented On 7 9:04AM ; [facility] Education and Decision Aids were provided during visit for: Patient Education: Daily althea cium and vitamin D Last Documented On 7 9:03AM ; [facility] Patient Education: weight be aring exercise Last Documented On 7 9:03AM ; [facility] Assessments Includes: Assessments from this encounter Findings - NORMAL FEMALE EXAM - Last Documented On 09/14/2017 9:27AM ; [facility] Instructions Includes: Instructions from this encounter Instructions to patient Instructions for patient : B reast Self Exam discussed Last Documented On 7 9:03AM ; [facility] Gardasil information given a nd series encouraged Series completed! Last Documented On 7 9:04AM ; [facility] Safe sex counseling Last Documented On 7 9:04AM ; [facility] Education and Decision Aids were provided during visit for: Patient Education: Daily althea cium and vitamin D Last Documented On 7 9:03AM ; [facility] Patient Education: weight be aring exercise Last Documented On 7 9:03AM ; [facility] Medical Equipment - Implanted Devices Includes: Current Devices No Medical Equipment Recorded Medications Includes: Medications discussed during this encounter and other current Medications Past Medications on file Microgestin FE 12/15 1-20 MG-MCG OR TABS 08/09/2012 - 09/08/2012 Provider: NAEEM SCHULTZ Diagnosis: Last Documented On 2 1:39PM By NAEEM WONG ; [facility] Medications Administered Includes: Administered Medications from this encounter No Administered Medications Recorded Vital Signs Includes: Vital Signs from this encounter Vital Name 09/14/2017 09:16A Blood Pressure Sitting L 110/60 BP Cuff Size Regular Height (in) 65 Weight (lb) 166 Body Mass Index (kg/m2) 27.6 Body Surface Area (m2) 1.8 Last Documented: On 09/14/2017 9:18AM ; [facility] Results Includes: Results discussed during this encounter No Results Recorded For Specified Dates History of Present Illness Includes: History of Present Illness from this encounter GURMEET GERARDO is a 26 year old female. - PRIMARY CARE PROVIDER : Dr Veloz. Social History Description Last Updated In monogamous relationship 09/14/2017 Last Documented On 7 9:27AM ; [facility] Non-smoker 09/14/2017 Last Documented On 7 9:27AM ; [facility] Not using alcohol 09/14/2017 Last Documented On 7 9:27AM ; [facility] Not using drugs 09/14/2017 Last Documented On 7 9:27AM ; [facility] Sexually active with 1 partners in the l ast year 09/14/2017 Last Documented On 7 9:27AM ; [facility] Social history unchanged 09/14/2017 Last Documented On 7 9:27AM ; [facility] Smoking status : Never smoker 09/14/2017 Last Documented On 7 9:27AM ; [facility] Advent: Mormon 08/27/2015 Last Documented On 7 9:13AM ; [facility] Mu-Ism affiliation 08/27/2015 Last Documented On 7 9:13AM ; [facility] Procedures and Surgical History Includes: Procedures from this encounter Procedures Code Diagnosis Performing Provider Service L ocation Service Date low fat diet Last Documented On 7 9:04AM ; [facility] Chlamydia trachomatis culture was perfor med Last Documented On 7 9:04AM ; [facility] Neisseria gonorrhea culture was performe d Last Documented On 7 9:04AM ; [facility] Cervical Pap Smear performed [id number] Last Documented On 7 9:04AM ; [facility] Medical History Includes: Medical History addressed during this encounter Description Last Updated No recent change in medical history 08/27 Last Documented On 7 9:27AM ; [facility] Sexually active 09/14/2017 Last Documented On 7 9:27AM ; [facility] Contraception: nexplanon 08-27-15 017 Last Documented On 7 9:27AM ; [facility] History of Pap smear done 08/03/201408/27 Last Documented On 7 9:27AM ; [facility] LMP: 2015 09/14/2017 Last Documented On 7 9:27AM ; [facility] Result: normal 09/14/2017 Last Documented On 7 9:27AM ; [facility] 0 08/27/2015 Last Documented On 7 9:13AM ; [facility] History of Gardasil 08/27/2015 Last Documented On 7 9:13AM ; [facility] Family History Includes: Family History addressed during this encounter Description Last Updated Family history unchanged 09/14/2017 Last Documented On 7 9:27AM ; [facility] Spouse name: Sarabjit 08/30/2016 Last Documented On 7 9:13AM ; [facility] Review of Systems Includes: Review of Systems from this encounter Gastrointestinal: No pelvic pain. Genitourinary: No menorrhagia. No dysmenorrhea and no bleeding between periods. No vaginal discharge. Mental Status Includes: Mental Status from this encounter No Mental Status Recorded Functional Status Includes: Functional Status from this encounter No Functional Status Recorded Physical Exam Includes: Physical Exam from this encounter Allergies Includes: Active Allergies No Known Allergies Encounters Encounter Provider Location Date Check-In Time Check-Out Time Diagnosis MANAGER MARKETING COMMUNICATIONS EXAM NAEEM DELA CRUZ [facility] 7 9:00AM 9:29AM Normal Female Exam Insurance Includes: Active Insurance Policies Plan Name Member ID Group # Subscriber Relationship Effect shorty Dates 1 - [facility] [id number] SARABJIT GERARDO Clinical Notes Includes: Clinical Notes from this encounter No Clinical Notes Recorded
--- OUTSIDE RECORDS SUMMARY | 2024-12-18 07:13 | XMS_ITS | Clinical Summary ---
Author Organization [facility] Address [address] [place] [address] Phone Care Team Providers Care Transport Tech Name Role Phone PATTI ALMONTE, JEFERSON C Unavailable [phone] CHERYL ALMONTE, ELHAM Primary Care Provider [phone] Reason for Visit and Chief Complaint gynecologic annual exam - The Chief Complaint is: Annual Problems Includes: Problems addressed during this encounter and other active Problems No Active Problems Plan of Treatment - Clinical summary provided to patient - Last Documented On 09/16/2018 11:06AM ; [facility] Per new ASCCP guidelines, pap was deferred today. This was d/w pt. and pt. is agreeable to this plan. - Last Documented On 09/16/2018 11:06AM ; [facility] Instructions to patient Instructions for patient : B reast Self Exam discussed Last Documented On 8 10:50AM ; [facility] Lose weight Last Documented On 8 10:51AM ; [facility] Gardasil information given a nd series encouraged Series completed! Last Documented On 8 10:51AM ; [facility] Education and Decision Aids were provided during visit for: Patient Education: Daily althea cium and vitamin D Last Documented On 8 10:50AM ; [facility] Patient Education: weight be aring exercise Last Documented On 8 10:50AM ; [facility] Assessments Includes: Assessments from this encounter Findings - NORMAL FEMALE EXAM - Last Documented On 09/16/2018 11:06AM ; [facility] Instructions Includes: Instructions from this encounter Instructions to patient Instructions for patient : B reast Self Exam discussed Last Documented On 8 10:50AM ; [facility] Lose weight Last Documented On 8 10:51AM ; [facility] Gardasil information given a nd series encouraged Series completed! Last Documented On 8 10:51AM ; [facility] Education and Decision Aids were provided during visit for: Patient Education: Daily althea cium and vitamin D Last Documented On 8 10:50AM ; [facility] Patient Education: weight be aring exercise Last Documented On 8 10:50AM ; [facility] Medical Equipment - Implanted Devices Includes: Current Devices No Medical Equipment Recorded Medications Includes: Medications discussed during this encounter and other current Medications Discontinued / Stopped on this date on 08/27/2015 Nexplanon 68 MG Implant Provider: Diagnosis: Last Documented On 8 10:58AM By ROHIT LOU ; [facility] Past Medications on file Microgestin FE 12/15 1-20 MG-MCG OR TABS 08/09/2012 - 09/08/2012 Provider: NAEEM SCHULTZ Diagnosis: Last Documented On 2 1:39PM By NAEEM WONG ; [facility] Medications Administered Includes: Administered Medications from this encounter No Administered Medications Recorded Vital Signs Includes: Vital Signs from this encounter Vital Name 09/16/2018 10:53A 09/16/2018 10: 52A Blood Pressure Sitting L 120/60 BP Cuff Size Regular Height (in) 65 65 Weight (lb) 166 Body Mass Index (kg/m2) 27.6 Body Surface Area (m2) 1.8 Last Documented: On 09/16/2018 10:55A M ; [facility] On 09/16/2018 10:52AM ; [facility] Results Includes: Results discussed during this encounter THINPREP TIS PAP REFLEX HPV mRNA E6/E7 Q [employer] Ordered by NAEEM WONG on 08/27 Collected: 09/14/2017 Reported: 09/20/20 17 14:26 Last Documented On 7 8:43AM ; [facility] Reviewed by NAEEM DELA CRUZ HIV PREVENTION SPECIALIST-BC on 09/21/2017; All test results are final unless otherwise noted. SOURCE: Cervix, Endocervix N (Normal) Last Documented On 7 8:43AM ; [facility] CLINICAL INFORMATION: Routine exam N (Normal) Last Documented On 7 8:43AM ; [facility] LMP: 2014 N (Normal) Last Documented On 7 8:43AM ; [facility] PREV. PAP: 2013 N (Normal) Last Documented On 7 8:43AM ; [facility] PREV. BX: NONE N (Normal) Last Documented On 7 8:43AM ; [facility] STATEMENT OF ADEQUACY: Satisfactory for evaluation. Endocervical/transformation zone component present. N (Normal) Last Documented On 7 8:43AM ; [facility] INTERPRETATION/RESULT: Negative for intraepithelial lesion or malignancy. N (Normal) Last Documented On 7 8:43AM ; [facility] COMMENT: This Pap test has been evaluated with computer assisted technology. N (Normal) Last Documented On 7 8:43AM ; [facility] DIRECTOR OF PEDIATRIC REHABILITATION: JUSTUS CT(ASCP) CT screening location: [place] [address] [place] [id number] N (Normal) Last Documented On 7 8:43AM ; [facility] REVIEW DIRECTOR OF PEDIATRIC REHABILITATION: PATRICE CT(ASCP) CT screening location: [place] [address] [id number] N (Normal) Last Documented On 7 8:43AM ; [facility] History of Present Illness Includes: History of Present Illness from this encounter HPI ROSI GERARDO is a 27 year old female. - Medication list reviewed - PRIMARY CARE PROVIDER : Dr Veloz Social History Description Last Updated In monogamous relationship 09/16/2018 Last Documented On 8 11:06AM ; [facility] Non-smoker 09/16/2018 Last Documented On 8 11:06AM ; [facility] Not using alcohol 09/16/2018 Last Documented On 8 11:06AM ; [facility] Not using drugs 09/16/2018 Last Documented On 8 11:06AM ; [facility] Sexually active with 1 partners in the l ast year 09/16/2018 Last Documented On 8 11:06AM ; [facility] Social history unchanged 09/16/2018 Last Documented On 8 11:06AM ; [facility] Smoking status : Never smoker 09/16/2018 Last Documented On 8 11:06AM ; [facility] The racial background 09/16/2018 Last Documented On 8 11:06AM ; [facility] The racial background is 09/16 Last Documented On 8 11:06AM ; [facility] Yarsani: Orthodox 08/27/2015 Last Documented On 8 10:52AM ; [facility] Episcopalian affiliation 08/27/2015 Last Documented On 8 10:52AM ; [facility] Procedures and Surgical History Includes: Procedures from this encounter Procedures Code Diagnosis Performing Provider Service L ocation Service Date low fat diet Last Documented On 8 10:51AM ; [facility] normal history of Pap smear of cervix Last Documented On 8 10:58AM ; [facility] Medical History Includes: Medical History addressed during this encounter Description Last Updated No recent change in medical history 08/27 Last Documented On 8 11:06AM ; [facility] Not using contraception 09/16/2018 Last Documented On 8 11:06AM ; [facility] Sexually active 09/16/2018 Last Documented On 8 11:06AM ; [facility] LMP: 08/26/2018 09/16/2018 Last Documented On 8 11:06AM ; [facility] History of Pap smear done 09/14/2017 Last Documented On 8 11:06AM ; [facility] Result: normal 09/16/2018 Last Documented On 8 11:06AM ; [facility] 0 08/27/2015 Last Documented On 8 10:52AM ; [facility] History of Gardasil 08/27/2015 Last Documented On 8 10:52AM ; [facility] Family History Includes: Family History addressed during this encounter Description Last Updated Family history unchanged 09/16/2018 Last Documented On 8 11:06AM ; [facility] Spouse name: Sarbajit 08/30/2016 Last Documented On 8 10:52AM ; [facility] Review of Systems Includes: Review of Systems [...] Location Date Check-In Time Check-Out Time Diagnosis JUNIOR PROJECT MANAGER EXAM NAEEM DELA CRUZ [facility] CYLINDER LOADER 8 10:45AM 11:08AM Normal Female Exam Insurance Includes: Active Insurance Policies Plan Name Member ID Group # Subscriber Relationship Effect shorty Dates 1 - [facility] [id number] SARABJIT GERARDO Clinical Notes Includes: Clinical Notes from this encounter No Clinical Notes Recorded
--- OUTSIDE RECORDS SUMMARY | 2024-12-18 07:13 | XMS_ITS | Clinical Summary ---
Author Organization [facility] Address [address] [place] [address] Phone Care Team Providers Care Phonograph Mechanic Name Role Phone PATTI ALMONTE, JEFERSON C Unavailable [phone] CHERYL ALMONTE, ELHAM Primary Care Provider [phone] Reason for Visit and Chief Complaint The Chief Complaint is: Nexplanon check removal and reinsertion-no complaints Problems Includes: Problems addressed during this encounter and other active Problems No Active Problems Plan of Treatment No Plan of Treatment Recorded Assessments Includes: Assessments from this encounter Findings - Contraceptive management - Last Documented On 09/27/2015 1:51PM ; [facility] Medical Equipment - Implanted Devices Includes: Current Devices No Medical Equipment Recorded Medications Includes: Medications discussed during this encounter and other current Medications Past Medications on file Microgestin FE 12/15 1-20 MG-MCG OR TABS 08/09/2012 - 09/08/2012 Provider: NAEEM SCHULTZ Diagnosis: Last Documented On 2 1:39PM By NAEEM WONG ; [facility] Medications Administered Includes: Administered Medications from this encounter No Administered Medications Recorded Vital Signs Includes: Vital Signs from this encounter Vital Name 09/27/2015 01:42P Blood Pressure Sitting L 120/70 BP Cuff Size Regular Height (in) 65 Weight (lb) 155 Body Mass Index (kg/m2) 25.8 Body Surface Area (m2) 1.8 Last Documented: On 09/27/2015 1:44PM ; [facility] Results Includes: Results discussed during this encounter No Results Recorded For Specified Dates History of Present Illness Includes: History of Present Illness from this encounter No History of Present Illness Recorded Social History Description Last Updated Smoking status : Never smoker 09/27/2015 Last Documented On 5 1:51PM ; [facility] Medical History Includes: Medical History addressed during this encounter Description Last Updated Contraception: nexplanon 10-2-15 015 Last Documented On 5 1:51PM ; [facility] Family History Includes: Family History addressed during this encounter No Family History Recorded Review of Systems Includes: Review of Systems from this encounter Systemic: No fever and no recent weight change. Head: No headache. Breasts: No pain in breast. Cardiovascular: No chest pain or discomfort. Pulmonary: No dyspnea. Gastrointestinal: Normal appetite, no nausea, and no vomiting. Genitourinary: No pelvic pain and no menorrhagia. No dysmenorrhea and no bleeding between periods. No vaginal discharge. Psychological: No anxiety and no depression. Skin: No skin lesions. Occ. shooting pain into left wrist when she bends (extends) her arm - getting markedly better since date of procedure. Mental Status Includes: Mental Status from this encounter Description No anxiety Functional Status Includes: Functional Status from this encounter No Functional Status Recorded Physical Exam Includes: Physical Exam from this encounter Allergies Includes: Active Allergies No Known Allergies Encounters Encounter Provider Location Date Check-In Time Check-Out Time Diagnosis 1 MONTH CHECK NAEEM DELA CRUZ [facility] SUSTAINABILITY OFFICER 09/27/20 15 1:39PM 1:49PM Contraceptive Management Insurance Includes: Active Insurance Policies Plan Name Member ID Group # Subscriber Relationship Effect shorty Dates 1 - [facility] [id number] SARABJIT GERARDO Clinical Notes Includes: Clinical Notes from this encounter No Clinical Notes Recorded
--- OUTSIDE RECORDS SUMMARY | 2024-12-18 07:13 | XMS_ITS | Clinical Summary ---
Author Organization [facility] Address [address] [place] [address] Phone Care Team Providers Care Rural Route Mail Carrier Name Role Phone PATTI ALMONTE, JEFERSON C Unavailable [phone] CHERYL ALMONTE, ELHAM Primary Care Provider [phone] Reason for Visit and Chief Complaint gynecologic annual exam - The Chief Complaint is: Annual Problems Includes: Problems addressed during this encounter and other active Problems No Active Problems Plan of Treatment - Clinical summary provided to patient - Last Documented On 08/30/2016 3:23PM ; [facility] Per new ASCCP guidelines, pap was deferred today. This was d/w pt. and pt. is agreeable to this plan. - Last Documented On 08/30/2016 3:23PM ; [facility] Instructions to patient Instructions for patient : B reast Self Exam discussed Last Documented On 6 3:00PM ; [facility] Gardasil information given a nd series encouraged Series completed! Last Documented On 6 3:01PM ; [facility] Safe sex counseling Last Documented On 6 3:01PM ; [facility] Education and Decision Aids were provided during visit for: Patient Education: Daily althea cium and vitamin D Last Documented On 6 3:00PM ; [facility] Patient Education: weight be aring exercise Last Documented On 3:00PM ; [facility] Assessments Includes: Assessments from this encounter Findings - NORMAL FEMALE EXAM - Last Documented On 08/30/2016 3:23PM ; [facility] Instructions Includes: Instructions from this encounter Instructions to patient Instructions for patient : B reast Self Exam discussed Last Documented On 6 3:00PM ; [facility] Gardasil information given a nd series encouraged Series completed! Last Documented On 6 3:01PM ; [facility] Safe sex counseling Last Documented On 6 3:01PM ; [facility] Education and Decision Aids were provided during visit for: Patient Education: Daily althea cium and vitamin D Last Documented On 6 3:00PM ; [facility] Patient Education: weight be aring exercise Last Documented On 6 3:00PM ; [facility] Medical Equipment - Implanted Devices Includes: Current Devices No Medical Equipment Recorded Medications Includes: Medications discussed during this encounter and other current Medications Past Medications on file Microgestin FE 12/15 1-20 MG-MCG OR TABS 08/09/2012 - 09/08/2012 Provider: NAEEM SCHULTZ Diagnosis: Last Documented On 2 1:39PM By NAEEM WONG ; [facility] Medications Administered Includes: Administered Medications from this encounter No Administered Medications Recorded Vital Signs Includes: Vital Signs from this encounter Vital Name 08/30/2016 03:09P Blood Pressure Sitting L 122/64 BP Cuff Size Regular Height (in) 65 Weight (lb) 154 Body Mass Index (kg/m2) 25.6 Body Surface Area (m2) 1.8 Last Documented: On 08/30/2016 3:11PM ; [facility] Results Includes: Results discussed during this encounter [employer] PAP RFX HPV mRNA E6/E7 [employer] Ordered by NAEEM WONG on 06/2014 Collected: 08/03/2014 Reported: 08/05/20 14 21:23 Last Documented On 4 9:02AM ; [facility] Reviewed on 08/06/2014; All test results are final unless otherwise noted. SOURCE: Cervix, Endocervix N (Normal) Last Documented On 4 9:02AM ; [facility] CLINICAL INFORMATION: Other high risk factor, specify Routine exam N (Normal) Last Documented On 4 9:02AM ; [facility] LMP: 2012 N (Normal) Last Documented On 4 9:02AM ; [facility] PREV. PAP: NONE N (Normal) Last Documented On 4 9:02AM ; [facility] PREV. BX: NONE N (Normal) Last Documented On 4 9:02AM ; [facility] STATEMENT OF ADEQUACY: Satisfactory for evaluation. Endocervical/transformation zone component present. N (Normal) Last Documented On 4 9:02AM ; [facility] INTERPRETATION/RESULT: Negative for intraepithelial lesion or malignancy. N (Normal) Last Documented On 4 9:02AM ; [facility] INSERT CUTTER: ABC, CT(ASCP) N (Normal) Last Documented On 4 9:02AM ; [facility] History of Present Illness Includes: History of Present Illness from this encounter GURMEET GERARDO is a 25 year old female. - Medication list reviewed - PRIMARY CARE PROVIDER : Dr Veloz Social History Description Last Updated Alcohol use socially 08/30/2016 Last Documented On 6 3:23PM ; [facility] In monogamous relationship 08/30/2016 Last Documented On 6 3:23PM ; [facility] Non-smoker 08/30/2016 Last Documented On 6 3:23PM ; [facility] Not using drugs 08/30/2016 Last Documented On 6 3:23PM ; [facility] Sexually active with 1 partners in the l ast year 08/30/2016 Last Documented On 6 3:23PM ; [facility] Social history changed in June 2016 08/30/2016 Last Documented On 6 3:23PM ; [facility] Smoking status : Never smoker 08/30/2016 Last Documented On 6 3:23PM ; [facility] Congregation: Mandaeism 08/27/2015 Last Documented On 6 3:00PM ; [facility] Spiritism affiliation 08/27/2015 Last Documented On 6 3:00PM ; [facility] Procedures and Surgical History Includes: Procedures from this encounter Procedures Code Diagnosis Performing Provider Service L ocation Service Date low fat diet Last Documented On 6 3:01PM ; [facility] normal history of Pap smear of cervix Last Documented On 6 3:12PM ; [facility] Medical History Includes: Medical History addressed during this encounter Description Last Updated No recent change in medical history 03/2016 Last Documented On 6 3:23PM ; [facility] LMP: 2015 08/30/2016 Last Documented On 6 3:23PM ; [facility] Sexually active 08/30/2016 Last Documented On 6 3:23PM ; [facility] Contraception: nexplanon 08-27-15 016 Last Documented On 6 3:23PM ; [facility] History of Pap smear done 08/03/201403/2016 Last Documented On 6 3:23PM ; [facility] Result: normal 08/30/2016 Last Documented On 6 3:23PM ; [facility] 0 08/27/2015 Last Documented On 6 3:00PM ; [facility] History of Gardasil 08/27/2015 Last Documented On 6 3:00PM ; [facility] Family History Includes: Family History addressed during this encounter Description Last Updated Spouse name: Sarabjit 08/30/2016 Last Documented On 6 3:23PM ; [facility] Family history unchanged 08/30/2016 Last Documented On 6 3:23PM ; [facility] Review of Systems Includes: Review of Systems [...] Location Date Check-In Time Check-Out Time Diagnosis WINCHMAN/CRANE OPERATOR EXAM NAEEM [facility] EXTRACT MIXER 6 2:59PM 3:26PM Normal Female Exam Insurance Includes: Active Insurance Policies Plan Name Member ID Group # Subscriber Relationship Effect shorty Dates 1 - [facility] [id number] SARABJIT GERARDO Clinical Notes Includes: Clinical Notes from this encounter No Clinical Notes Recorded
--- OUTSIDE RECORDS SUMMARY | 2024-12-18 07:13 | XMS_ITS | Clinical Summary ---
Author Organization [facility] Address [address] [place] [address] Phone Care Team Providers Care Registered Respiratory Therapist Name Role Phone PATTI ALMONTE, JEFERSON Dawn Unavailable [phone] ELHAM LUNA MD Primary Care Provider [phone] Reason for Visit and Chief Complaint The Chief Complaint is: nexplanon removal - desires to conceive Problems Includes: Problems addressed during this encounter and other active Problems No Active Problems Plan of Treatment - Clinical summary provided to patient - Last Documented On 07/31/2018 1:04PM ; [facility] Pending Tests Order Diagnosis Results Due Ordering Provider In office procedures - OB Implanon Removal Enctr srvlnc implantable subdermal contraceptive 08/14/18 NAEEM WONG Last Documented On 8 1:02PM ; [facility] Assessments Includes: Assessments from this encounter No Assessments Recorded Medical Equipment - Implanted Devices Includes: Current Devices No Medical Equipment Recorded Medications Includes: Medications discussed during this encounter and other current Medications Past Medications on file Microgestin FE 12/15 1-20 MG-MCG OR TABS 08/09/2012 - 09/08/2012 Provider: NAEEM SCHULTZ Diagnosis: Last Documented On 2 1:39PM By NAEEM WONG ; [facility] Medications Administered Includes: Administered Medications from this encounter No Administered Medications Recorded Vital Signs Includes: Vital Signs from this encounter Vital Name 07/31/2018 12:46P 07/31/2018 12:44P 07/31 12:43P Blood Pressure Sitting L 120/60 BP Cuff Size Regular Height (in) 65 65 Weight (lb) 163 Last Documented: On 07/31/2018 12:47P M ; [facility] On 07/31/2018 12:46PM ; [facility] On 07/31/2018 12:43PM ; [facility] Results Includes: Results discussed during this encounter No Results Recorded For Specified Dates History of Present Illness Includes: History of Present Illness from this encounter No History of Present Illness Recorded Social History Description Last Updated Smoking status : Never smoker 07/31/2018 Last Documented On 8 1:04PM ; [facility] The racial background 07/31/2018 Last Documented On 8 1:04PM ; [facility] The racial background is 07/31 Last Documented On 8 1:04PM ; [facility] Roman Catholic: Hoahaoism 08/27/2015 Last Documented On 8 12:43PM ; [facility] Samaritan affiliation 08/27/2015 Last Documented On 8 12:43PM ; [facility] Procedures and Surgical History Includes: Procedures from this encounter Procedures Code Diagnosis Performing Provider Service L ocation Service Date Hormone implant - removal, left arm Area was cleaned with alcohol. 1 cc of Lidocaine 1 % plus epinephrine was injected underneath the tip of the Nexplanon fior that is closest to the elbow. I pressed down on the end of the implant closest to the axilla and with a 10 blade made a 0.3 cm incision parallel to Nexplanon fior. Nexplanon was gently pushed toward the incision until the tip was visible. The implant was grasped with forceps and gently pulled out. Nexplanon removed without difficulty. Steri-strip applied to the area along with a pressure bandage with sterile gauze. Patient instructed in wound care and signs of infection reviewed Last Documented On 8 12:39PM ; [facility] Medical History Includes: Medical History addressed during this encounter Description Last Updated Sexually active 09/16/2018 Last Documented On 8 12:43PM ; [facility] History of Pap smear done 09/14/201703/2018 Last Documented On 8 1:04PM ; [facility] Result: normal 07/31/2018 Last Documented On 8 1:04PM ; [facility] 0 08/27/2015 Last Documented On 8 12:43PM ; [facility] History of Gardasil 08/27/2015 Last Documented On 8 12:43PM ; [facility] Family History Includes: Family History addressed during this encounter Description Last Updated Spouse name: Sarabjit 08/30/2016 Last Documented On 8 12:43PM ; [facility] Review of Systems Includes: Review of Systems from this encounter No Review of Systems Recorded Mental Status Includes: Mental Status from this encounter No Mental Status Recorded Functional Status Includes: Functional Status from this encounter No Functional Status Recorded Physical Exam Includes: Physical Exam from this encounter Allergies Includes: Active Allergies No Known Allergies Encounters Encounter Provider Location Date Check-In Time Check- Out Time Diagnosis PROCEDURE OFFICE NAEEM DELA CRUZ MAN [facility] CRM MARKETING MANAGER 8 12:36PM 1:07PM Insurance Includes: Active Insurance Policies Plan Name Member ID Group # Subscriber Relationship Effect shorty Dates 1 - [facility] [id number] SARABJIT GERARDO Clinical Notes Includes: Clinical Notes from this encounter No Clinical Notes Recorded
== END 2024-12-12 15:19 | disposition home or self-care (01) ==
PROVIDERS: PCP Physician Assistant; Visit Provider Obstetrics & Gynecology
DX: Z32.00 Encounter for pregnancy test, result unknown (principal)
CPT/HCPCS: 36415; 84144; 84702

== ENCOUNTER 2025-02-24 12:50 | Outpatient (CLI) | payer BC, SELFPAY ==
--- NOTE | ~2025-02-24 | MMUS_ITS ---
EXAMINATION: MM diagnostic abner BI w addison, US breast RT complete HISTORY: Burning sensation right breast. TECHNIQUE: Additional 3-D tomosynthesis images of the breasts were performed and synthetic 2-D images were generated. CAD analysis was submitted and interpreted. High resolution complete right breast ul trasound was performed. COMPARISON: No prior studies for comparison. BREAST PARENCHYMAL COMPOSITION: Not dense: There are scattered areas of fibroglandular density. FINDINGS: MAMMOGRAPHIC FINDINGS: There are no suspicious masses, calcifications or architectural distortion in either breast to sugges t malignancy ULTRASOUND: Complete US of all 4 quadrants of the right at 9:00, 7 cm from the nipple there are 2 small intramamm josephine lymph nodes measuring up to 6 mm. No suspicious masses to suggest malignancy. Breast/s and retroa reolar region was reviewed. IMPRESSION: 1. No evidence for malignancy in either breast. 2. Routine yearly screening mammogram and regular clinical breast examination are recommended. BI-RADS Category 1: Negative Reviewed, dictated and finalized at location A. IMPRESSION: 1. No evidence for malignancy in either breast. 2. Routine yearly screening mammogram and regular clinical breast examination a re recommended. BI-RADS Category 1: Negative
--- OUTSIDE RECORDS SUMMARY | 2025-02-24 13:58 | XMS_ITS | Clinical Summary ---
Author Organization [facility] Address [address] [place] [address] Phone Care Team Providers Care Station Usher Name Role Phone PATTI ALMONTE, JEFERSON C Unavailable [phone] CHERYL ALMONTE, ELHAM Primary Care Provider [phone] Reason for Visit and Chief Complaint gynecologic annual exam - The Chief Complaint is: Annual-will start seeking next year after nexplanon expires Problems Includes: Problems addressed during this encounter and other active Problems No Active Problems Plan of Treatment Instructions to patient Instructions for patient : B reast Self Exam discussed Last Documented On 7 9:03AM ; [facility] Gardasil information given a nd series encouraged Series completed! Last Documented On 7 9:04AM ; [facility] Safe sex counseling Last Documented On 7 9:04AM ; [facility] Education and Decision Aids were provided during visit for: Patient Education: Daily althea cium and vitamin D Last Documented On 7 9:03AM ; [facility] Patient Education: weight be aring exercise Last Documented On 7 9:03AM ; [facility] Assessments Includes: Assessments from this encounter Findings - NORMAL FEMALE EXAM - Last Documented On 09/14/2017 9:27AM ; [facility] Instructions Includes: Instructions from this encounter Instructions to patient Instructions for patient : B reast Self Exam discussed Last Documented On 7 9:03AM ; [facility] Gardasil information given a nd series encouraged Series completed! Last Documented On 7 9:04AM ; [facility] Safe sex counseling Last Documented On 7 9:04AM ; [facility] Education and Decision Aids were provided during visit for: Patient Education: Daily althea cium and vitamin D Last Documented On 7 9:03AM ; [facility] Patient Education: weight be aring exercise Last Documented On 7 9:03AM ; [facility] Medical Equipment - Implanted Devices Includes: Current Devices No Medical Equipment Recorded Medications Includes: Medications discussed during this encounter and other current Medications Past Medications on file Microgestin FE 12/15 1-20 MG-MCG OR TABS 08/09/2012 - 09/08/2012 Provider: NAEEM SCHULTZ Diagnosis: Last Documented On 2 1:39PM By NAEEM WONG ; [facility] Medications Administered Includes: Administered Medications from this encounter No Administered Medications Recorded Vital Signs Includes: Vital Signs from this encounter Vital Name 09/14/2017 09:16A Blood Pressure Sitting L 110/60 BP Cuff Size Regular Height (in) 65 Weight (lb) 166 Body Mass Index (kg/m2) 27.6 Body Surface Area (m2) 1.8 Last Documented: On 09/14/2017 9:18AM ; [facility] Results Includes: Results discussed during this encounter No Results Recorded For Specified Dates History of Present Illness Includes: History of Present Illness from this encounter GURMEET GERARDO is a 26 year old female. - PRIMARY CARE PROVIDER : Dr Veloz. Social History Description Last Updated In monogamous relationship 09/14/2017 Last Documented On 7 9:27AM ; [facility] Non-smoker 09/14/2017 Last Documented On 7 9:27AM ; [facility] Not using alcohol 09/14/2017 Last Documented On 7 9:27AM ; [facility] Not using drugs 09/14/2017 Last Documented On 7 9:27AM ; [facility] Sexually active with 1 partners in the l ast year 09/14/2017 Last Documented On 7 9:27AM ; [facility] Social history unchanged 09/14/2017 Last Documented On 7 9:27AM ; [facility] Smoking status : Never smoker 09/14/2017 Last Documented On 7 9:27AM ; [facility] Voodoo: Druze 08/27/2015 Last Documented On 7 9:13AM ; [facility] Jainism affiliation 08/27/2015 Last Documented On 7 9:13AM ; [facility] Procedures and Surgical History Includes: Procedures from this encounter Procedures Code Diagnosis Performing Provider Service L ocation Service Date low fat diet Last Documented On 7 9:04AM ; [facility] Chlamydia trachomatis culture was perfor med Last Documented On 7 9:04AM ; [facility] Neisseria gonorrhea culture was performe d Last Documented On 7 9:04AM ; [facility] Cervical Pap Smear performed [id number] Last Documented On 7 9:04AM ; [facility] Medical History Includes: Medical History addressed during this encounter Description Last Updated No recent change in medical history 08/27 Last Documented On 7 9:27AM ; [facility] Sexually active 09/14/2017 Last Documented On 7 9:27AM ; [facility] Contraception: nexplanon 08-27-15 017 Last Documented On 7 9:27AM ; [facility] History of Pap smear done 08/03/201408/27 Last Documented On 7 9:27AM ; [facility] LMP: 2015 09/14/2017 Last Documented On 7 9:27AM ; [facility] Result: normal 09/14/2017 Last Documented On 7 9:27AM ; [facility] 0 08/27/2015 Last Documented On 7 9:13AM ; [facility] History of Gardasil 08/27/2015 Last Documented On 7 9:13AM ; [facility] Family History Includes: Family History addressed during this encounter Description Last Updated Family history unchanged 09/14/2017 Last Documented On 7 9:27AM ; [facility] Spouse name: Sarabjit 08/30/2016 Last Documented On 7 9:13AM ; [facility] Review of Systems Includes: Review [...] Location Date Check-In Time Check-Out Time Diagnosis GARAGE DOOR INSTALLER EXAM NAEEM DELA CRUZ [facility] ENROBER 7 9:00AM 9:29AM Normal Female Exam Insurance Includes: Active Insurance Policies Plan Name Member ID Group # Subscriber Relationship Effect shorty Dates 1 - [facility] [id number] SARABJIT GERARDO Clinical Notes Includes: Clinical Notes from this encounter No Clinical Notes Recorded
--- OUTSIDE RECORDS SUMMARY | 2025-02-24 13:58 | XMS_ITS ---
Author Organization [facility] [[email or web address]] Address [address] [place] [address] Phone Care Team Providers Care Higher Level Teaching Assistant Name Role Phone PATTI ALMONTE, JEFERSON Dawn Unavailable [phone] CHERYL ALMONTE, ELHAM Primary Care Provider [phone] Problems Includes: Active, inactive, and resolved Problems No Active Problems Plan of Treatment Findings Encounter Date Ordered Clinical summary pro vided to patient CHIEF TECHNOLOGIST EXAM with NAEEM DELA CRUZ NP-BC 09/16/2018 Last Documented On 8 11:06AM ; [facility] Ordered Clinical summary pro vided to patient PROCEDURE OFFICE with NAEEM DELA CRUZ NP-BC 07/31/2018 Last Documented On 8 1:04PM ; [facility] Ordered Clinical summary pro vided to patient CHIEF TECHNOLOGIST EXAM with NAEEM DELA CRUZ NP-BC 08/30/2016 Last Documented On 6 3:23PM ; [facility] Ordered Clinical summary pro vided to patient PROCEDURE OFFICE with NAEEM DELA CRUZ NP-BC 08/27/2015 Last Documented On 5 11:18AM ; [facility] Ordered Clinical summary pro vided to patient CHIEF TECHNOLOGIST EXAM with NAEEM DELA CRUZ NP-BC 08/18/2015 Last Documented On 5 1:53PM ; [facility] Ordered Clinical summary pro vided to patient BREAST EXAM with NAEEM DELA CRUZ NP-BC 06/28/2015 Last Documented On 5 9:11AM ; [facility] Ordered Clinical summary pro vided to patient CHIEF TECHNOLOGIST EXAM with NAEEM DELA CRUZ [facility]-BC 08/03/2014 Last Documented On 4 11:42AM ; [facility] Ordered Clinical summary pro vided to patient CHIEF TECHNOLOGIST EXAM with NAEEM DELA CRUZ NP-BC 07/18/2013 Last Documented On 3 1:57PM ; [facility] Ordered Clinical summary pro vided to patient 1 MONTH CHECK with NAEEM DELA CRUZ [facility]-BC 10/23/2012 Last Documented On 2 4:01PM ; [facility] Ordered Clinical summary pro vided to patient IMPLANON with NAEEM DELA CRUZ [facility]- 09/18/2012 Last Documented On 2 4:15PM ; [facility] Declines STD testing - would like less expensive ocp CHIEF TECHNOLOGIST EXAM with NAEEM DELA CRUZ [facility]-BC 01/03/2012 Last Documented On 2 3:34PM ; [facility] Instructions to patient Instructions for patient : B reast Self Exam discussed Last Documented On 8 10:50AM ; [facility] Lose weight Last Documented On 8 10:51AM ; [facility] Gardasil information given a nd series encouraged Series completed! Last Documented On 8 10:51AM ; [facility] Instructions for patient : B reast Self Exam discussed Last Documented On 7 9:03AM ; [facility] Gardasil information given a nd series encouraged Series completed! Last Documented On 7 9:04AM ; [facility] Safe sex counseling Last Documented On 7 9:04AM ; [facility] Instructions for patient : B reast Self Exam discussed Last Documented On 6 3:00PM ; [facility] Gardasil information given a nd series encouraged Series completed! Last Documented On 6 3:01PM ; [facility] Safe sex counseling Last Documented On 6 3:01PM ; [facility] Instructions for patient : B reast Self Exam discussed Last Documented On 5 1:25PM ; [facility] Gardasil information given a nd series encouraged Series completed! Last Documented On 5 1:26PM ; [facility] Safe sex counseling Last Documented On 5 1:26PM ; [facility] Instructions for patient Althea l for any palpable lumps Last Documented On 5 9:10AM ; [facility] Instructed to decrease carbo nation and caffeine Last Documented On 5 9:10AM ; [facility] Instructions For Patient: Mo nthly Self Breast Exam Last Documented On 5 9:10AM ; [facility] Instructions for patient : B reast Self Exam discussed Last Documented On 4 11:28AM ; [facility] Gardasil information given a nd series encouraged Series completed! Last Documented On 4 11:29AM ; [facility] Safe sex counseling Last Documented On 4 11:29AM ; [facility] Return to the clinic if cond ition worsens or new symptoms arise Last Documented On 4 9:34AM ; [facility] ER/ Pain Precautions Last Documented On 4 9:34AM ; [facility] Safe sex counseling States i s using condoms 100% Last Documented On 4 9:55AM ; [facility] [[email or web address]] Instructions for patient : B reast Self Exam discussed Last Documented On 3 1:47PM ; [facility] Gardasil information given a nd series encouraged Series completed! Last Documented On 3 1:48PM ; [facility] Safe sex counseling Last Documented On 3 1:48PM ; [facility] Gardasil information given a nd series encouraged done x 3 doses Last Documented On 2 3:34PM ; [facility] Safe sex counseling Last Documented On 2 3:34PM ; [facility] Instructions for patient Althea l for any palpable lumps Last Documented On 1 4:25PM ; [facility] Instructed to decrease carbo nation and caffeine Last Documented On 1 4:25PM ; [facility] Instructions For Patient: Mo nthly Self Breast Exam Last Documented On 1 4:25PM ; [facility] Instructions for patient : B reast Self Exam discussed and technique reviewed Last Documented On 1 8:58AM ; [facility] Recommend diet and exercise at least 30 min three times per week Last Documented On 1 8:58AM ; [facility] Recommend preventative vacci nation including but not limited to influenza/flu vaccine, DTP, Rubella, Hepatitis B vaccination series Last Documented On 1 8:58AM ; [facility] [[email or web address]] Education and Decision Aids were provided during visit for: Patient Education: Daily althea cium and vitamin D Last Documented On 8 10:50AM ; [facility] Patient Education: weight be aring exercise Last Documented On 8 10:50AM ; [facility] [[email or web address]] Patient Education: Daily althea cium and vitamin D Last Documented On 7 9:03AM ; [facility] [[email or web address]] Patient Education: weight be aring exercise Last Documented On 7 9:03AM ; [facility] [[email or web address]] Patient Education: Daily althea cium and vitamin D Last Documented On 6 3:00PM ; [facility] Patient Education: weight be aring exercise Last Documented On 6 3:00PM ; [facility] [[email or web address]] Patient Education: Daily althea cium and vitamin D Last Documented On 5 1:25PM ; [facility] [[email or web address]] Patient Education: weight be aring exercise Last Documented On 5 1:25PM ; [facility] [[email or web address]] Patient Education: Daily althea cium and vitamin D Last Documented On 4 11:28AM ; [facility] Patient Education: weight be aring exercise Last Documented On 4 11:28AM ; [facility] Patient Education: Daily althea cium and vitamin D Last Documented On 3 1:47PM ; [facility] [[email or web address]] Patient Education: weight be aring exercise Last Documented On 3 1:47PM ; [facility] [[email or web address]] Patient Education: weight be aring exercise Last Documented On 2 3:34PM ; [facility] control consent review ed and signed Last Documented On 2 3:34PM ; [facility] control consent review ed and signed Not sexually active for over 1 year Last Documented On 1 4:26PM ; [facility] Assessments Includes: Assessments for all patient encounters Findings Encounter Date NORMAL FEMALE EXAM CHIEF TECHNOLOGIST EXAM with NAEEM Pettit HNP-BC 09/16/2018 Last Documented On 8 11:06AM ; [facility] NORMAL FEMALE EXAM CHIEF TECHNOLOGIST EXAM with NAEEM Pettit HNP-BC 09/14/2017 Last Documented On 7 9:27AM ; [facility] NORMAL FEMALE EXAM CHIEF TECHNOLOGIST EXAM with NAEEM Pettit HNP-BC 08/30/2016 Last Documented On 6 3:23PM ; [facility] Contraceptive management 1 MONTH CHECK with LIZZY DELA CRUZ WHNP-BC 09/27/2015 Last Documented On 5 1:51PM ; [facility] Contraceptive management PROCEDURE OFFICE with López DELA CRUZ WHNP-BC 08/27/2015 Last Documented On 5 11:18AM ; [facility] Contraceptive surveillance PROCEDURE OFFICE with NAEEM DELA CRUZ NP-BC 08/27/2015 Last Documented On 5 11:18AM ; [facility] NORMAL FEMALE EXAM CHIEF TECHNOLOGIST EXAM with NAEEM DELA CRUZ W HNP-BC 08/18/2015 Last Documented On 5 1:53PM ; [facility] Fibrocystic disease of breast BREAST EXAM with López DELA CRUZ WHNP-BC 06/28/2015 Last Documented On 5 9:11AM ; [facility] NORMAL FEMALE EXAM CHIEF TECHNOLOGIST EXAM with NAEEM DELA CRUZ W HNP-BC 08/03/2014 Last Documented On 4 11:42AM ; [facility] NORMAL FEMALE EXAM CHIEF TECHNOLOGIST EXAM with NAEEM Pettit HNP-BC 07/18/2013 Last Documented On 3 1:57PM ; [facility] Contraceptive surveillance 1 MONTH CHECK with MARINA NORTON Ephraim DELA CRUZ NP-BC 10/23/2012 Last Documented On 2 4:01PM ; [facility] Contraceptive surveillance IMPLANON with ANEEM DELA CRUZ NP-BC 09/18/2012 Last Documented On 2 4:15PM ; [facility] Contraceptive surveillance CONSULTATION with HELENA DELA CRUZ WHNP-BC 08/09/2012 Last Documented On 2 1:39PM ; [facility] NORMAL FEMALE EXAM CHIEF TECHNOLOGIST EXAM with NAEEM DELA CRUZ [facility] 01/03/2012 Last Documented On 2 3:34PM ; [facility] Breast fibrocystic disease PROBLEM VISIT with MARINA Ye DELA CRUZ [facility]-BC 05/15/2011 Last Documented On 1 4:30PM ; [facility] NORMAL FEMALE EXAM NEW CHIEF TECHNOLOGIST EXAM with SHILA VÁZQUEZ 01/02/2011 Last Documented On 1 9:26AM ; [facility] Instructions Includes: Instructions for all patient encounters Instructions to patient Instructions for patient : B reast Self Exam discussed Last Documented On 8 10:50AM ; [facility] Lose weight Last Documented On 8 10:51AM ; [facility] Gardasil information given a nd series encouraged Series completed! Last Documented On 8 10:51AM ; [facility] [[email or web address]] Instructions for patient : B reast Self Exam discussed Last Documented On 7 9:03AM ; [facility] Gardasil information given a nd series encouraged Series completed! Last Documented On 7 9:04AM ; [facility] Safe sex counseling Last Documented On 7 9:04AM ; [facility] Instructions for patient : B reast Self Exam discussed Last Documented On 6 3:00PM ; [facility] Gardasil information given a nd series encouraged Series completed! Last Documented On 6 3:01PM ; [facility] Safe sex counseling Last Documented On 6 3:01PM ; [facility] Instructions for patient : B reast Self Exam discussed Last Documented On 5 1:25PM ; [facility] Gardasil information given a nd series encouraged Series completed! Last Documented On 5 1:26PM ; [facility] Safe sex counseling Last Documented On 5 1:26PM ; [facility] Instructions for patient Althea l for any palpable lumps Last Documented On 5 9:10AM ; [facility] Instructed to decrease carbo nation and caffeine Last Documented On 5 9:10AM ; [facility] Instructions For Patient: Mo nthly Self Breast Exam Last Documented On 5 9:10AM ; [facility] Instructions for patient : B reast Self Exam discussed Last Documented On 4 11:28AM ; [facility] Gardasil information given a nd series encouraged Series completed! Last Documented On 4 11:29AM ; [facility] Safe sex counseling Last Documented On 4 11:29AM ; [facility] Return to the clinic if cond ition worsens or new symptoms arise Last Documented On 4 9:34AM ; [facility] ER/ Pain Precautions Last Documented On 4 9:34AM ; [facility] Safe sex counseling States i s using condoms 100% Last Documented On 4 9:55AM ; [facility] Instructions for patient : B reast Self Exam discussed Last Documented On 3 1:47PM ; [facility] Gardasil information given a nd series encouraged Series completed! Last Documented On 3 1:48PM ; [facility] Safe sex counseling Last Documented On 3 1:48PM ; [facility] Gardasil information given a nd series encouraged done x 3 doses Last Documented On 2 3:34PM ; [facility] Safe sex counseling Last Documented On 2 3:34PM ; [facility] Instructions for patient Althea l for any palpable lumps Last Documented On 1 4:25PM ; [facility] Instructed to decrease carbo nation and caffeine Last Documented On 1 4:25PM ; [facility] Instructions For Patient: Mo nthly Self Breast Exam Last Documented On 1 4:25PM ; [facility] Instructions for patient : B reast Self Exam discussed and technique reviewed Last Documented On 1 8:58AM ; [facility] Recommend diet and exercise at least 30 min three times per week Last Documented On 1 8:58AM ; [facility] Recommend preventative vacci nation including but not limited to influenza/flu vaccine, DTP, Rubella, Hepatitis B vaccination series Last Documented On 1 8:58AM ; [facility] Education and Decision Aids were provided during visit for: Patient Education: Daily althea cium and vitamin D Last Documented On 8 10:50AM ; [facility] [[email or web address]] Patient Education: weight be aring exercise Last Documented On 8 10:50AM ; [facility] [[email or web address]] Patient Education: Daily althea cium and vitamin D Last Documented On 7 9:03AM ; [facility] [[email or web address]] Patient Education: weight be aring exercise Last Documented On 7 9:03AM ; [facility] [[email or web address]] Patient Education: Daily althea cium and vitamin D Last Documented On 6 3:00PM ; [facility] [[email or web address]] Patient Education: weight be aring exercise Last Documented On 6 3:00PM ; [facility] Patient Education: Daily althea cium and vitamin D Last Documented On 5 1:25PM ; [facility] [[email or web address]] Patient Education: weight be aring exercise Last Documented On 5 1:25PM ; [facility] [[email or web address]] Patient Education: Daily althea cium and vitamin D Last Documented On 4 11:28AM ; [facility] [[email or web address]] Patient Education: weight be aring exercise Last Documented On 4 11:28AM ; [facility] Patient Education: Daily althea cium and vitamin D Last Documented On 3 1:47PM ; [facility] [[email or web address]] Patient Education: weight be aring exercise Last Documented On 3 1:47PM ; [facility] [[email or web address]] Patient Education: weight be aring exercise Last Documented On 2 3:34PM ; [facility] control consent review ed and signed Last Documented On 2 3:34PM ; [facility] control consent review ed and signed Not sexually active for over 1 year Last Documented On 1 4:26PM ; [facility] Medical Equipment - Implanted Devices Includes: Current and historical Devices No Medical Equipment Recorded Medications Includes: Current and historical Medications Past Medications on file Nexplanon 68 MG Implant 08/27/2015 - 09/16/2018 Provid er: Diagnosis: left arm Last Documented On 8 10:58AM By ROHIT LOU ; [facility] Nexplanon 68 MG SC IMPL 09/18/2012 - 08/27/2015 Provid er: Diagnosis: Last Documented On 5 11:06AM By NAEEM DELA CRUZ FRANNY- ; [facility] Microgestin FE 1/20 1-20 MG-MCG OR TABS 08/09/2012 - 09/08/2012 Provider: NAEEM DELA CRUZ MACHINE PRINTER-BC Diagnosis: Last Documented On 2 1:39PM By NAEEM DELA CRUZ FRANNY- ; [facility] Loestrin 24 Fe 1-20 MG-MCG OR TABS 05/27/2012 - 08/09/2012 Provider: [facility] CROWDER RN NP BC Diagnosis: PRESCRIP-ORAL CONTRACEPT USE DIRECTED Last Documented On 2 1:39PM By NAEEM DELA CRUZ FRANNY- ; [facility] Sprintec 28 0.25-35 MG-MCG O R TABS 01/03/2012 - 05/27/2012 Provider: NAEEM DELA CRUZ MACHINE PRINTER-BC Diagnosis: Last Documented On 2 10:45AM By [facility] CROWDER FRANNY-BC ; [facility] Loestrin 24 Fe 1-20 MG-MCG O R TABS 11/06/2011 - 01/03/2012 Provider: NAEEM DELA CRUZ MACHINE PRINTER-BC Diagnosis: Last Documented On 2 3:24PM By NAEEM DELA CRUZ FRANNY-BC ; [facility] Loestrin 24 Fe 1-20 MG-MCG O R TABS 05/15/2011 - 11/06/2011 Provider: NAEEM DELA CRUZ MACHINE PRINTER-BC Diagnosis: 2 samples given today. Last Documented On 1 9:39AM By NAEEM DELA CRUZ FRANNY-BC ; [facility] [[email or web address]] Medications Administered Includes: Administered Medications in patient's chart No Administered Medications Recorded Results Includes: Results from 02/25/2024 through 02/24/2025 No Results Recorded For Specified Dates History of Present Illness History of Present Illness not supported for this document type No History of Present Illness Recorded Social History Description Last Updated In monogamous relationship 09/16/2018 Last Documented On 8 11:06AM ; [facility] Non-smoker 09/16/2018 Last Documented On 8 11:06AM ; [facility] Not using alcohol 09/16/2018 Last Documented On 8 11:06AM ; [facility] Not using drugs 09/16/2018 Last Documented On 8 11:06AM ; [facility] Sexually active with 1 partners in the l ast year 09/16/2018 Last Documented On 8 11:06AM ; [facility] Social history unchanged 09/16/2018 Last Documented On 8 11:06AM ; [facility] Smoking status : Never smoker 09/16/2018 Last Documented On 8 11:06AM ; [facility] The racial background 09/16/2018 Last Documented On 8 11:06AM ; [facility] The racial background is 09/16 Last Documented On 8 11:06AM ; [facility] Uatsdin: Congregation 08/27/2015 Last Documented On 5 11:18AM ; [facility] Confucianist affiliation 08/27/2015 Last Documented On 5 11:18AM ; [facility] Medical History Includes: Medical History in patient's chart Description Last Updated No recent change in medical history 08/27 Last Documented On 8 11:06AM ; [facility] Not using contraception 09/16/2018 Last Documented On 8 11:06AM ; [facility] Sexually active 09/16/2018 Last Documented On 8 11:06AM ; [facility] LMP: 08/26/2018 09/16/2018 Last Documented On 8 11:06AM ; [facility] History of Pap smear done 09/14/2017 Last Documented On 8 11:06AM ; [facility] Result: normal 09/16/2018 Last Documented On 8 11:06AM ; [facility] 0 08/27/2015 Last Documented On 5 11:18AM ; [facility] History of Gardasil 08/27/2015 Last Documented On 5 11:18AM ; [facility] Family History Includes: Family History in patient's chart Description Last Updated Family history unchanged 09/16/2018 Last Documented On 8 11:06AM ; [facility] Spouse name: Sarabjit 08/30/2016 Last Documented On 6 3:23PM ; [facility] Review of Systems Review of Systems [...] Patient Last Documented On 1 9:20AM ; [facility] HPV, (quadrivalent) Gardasil 2 05/01/2006 Complete (Reported) Patient Last Documented On 1 9:20AM ; [facility] HPV, (quadrivalent) Gardasil 3 10/02/2006 Complete (Reported) Patient Last Documented On 1 9:20AM ; [facility] Allergies Includes: Active, inactive, and resolved Allergies No Known Allergies Insurance Includes: Active Insurance Policies Plan Name Member ID Group # Subscriber Relationship Effect shorty Dates 1 - [facility] [id number] SARABJIT GERARDO Clinical Notes Includes: Signed Clinical Notes starting from 12/15/2022 No Clinical Notes Recorded
--- OUTSIDE RECORDS SUMMARY | 2025-02-24 13:58 | XMS_ITS | Clinical Summary ---
Author Organization [facility] Address [address] [place] [address] Phone Care Team Providers Care Roaster Supervisor Name Role Phone PATTI ALMONTE, JEFERSON C Unavailable [phone] CHERYL ALMONTE, ELHAM Primary Care Provider [phone] Reason for Visit and Chief Complaint gynecologic annual exam - The Chief Complaint is: Annual Problems Includes: Problems addressed during this encounter and other active Problems No Active Problems Plan of Treatment - Clinical summary provided to patient - Last Documented On 09/16/2018 11:06AM ; [facility] Per new ASCCP guidelines, pap was deferred today. This was d/w pt. and pt. is agreeable to this plan. - Last Documented On 09/16/2018 11:06AM ; [facility] Instructions to patient Instructions for patient : B reast Self Exam discussed Last Documented On 8 10:50AM ; [facility] Lose weight Last Documented On 8 10:51AM ; [facility] Gardasil information given a nd series encouraged Series completed! Last Documented On 8 10:51AM ; [facility] Education and Decision Aids were provided during visit for: Patient Education: Daily althea cium and vitamin D Last Documented On 8 10:50AM ; [facility] Patient Education: weight be aring exercise Last Documented On 8 10:50AM ; [facility] Assessments Includes: Assessments from this encounter Findings - NORMAL FEMALE EXAM - Last Documented On 09/16/2018 11:06AM ; [facility] Instructions Includes: Instructions from this encounter Instructions to patient Instructions for patient : B reast Self Exam discussed Last Documented On 8 10:50AM ; [facility] Lose weight Last Documented On 8 10:51AM ; [facility] Gardasil information given a nd series encouraged Series completed! Last Documented On 8 10:51AM ; [facility] Education and Decision Aids were provided during visit for: Patient Education: Daily althea cium and vitamin D Last Documented On 8 10:50AM ; [facility] Patient Education: weight be aring exercise Last Documented On 8 10:50AM ; [facility] Medical Equipment - Implanted Devices Includes: Current Devices No Medical Equipment Recorded Medications Includes: Medications discussed during this encounter and other current Medications Discontinued / Stopped on this date on 08/27/2015 Nexplanon 68 MG Implant Provider: Diagnosis: Last Documented On 8 10:58AM By ROHIT LOU ; [facility] Past Medications on file Microgestin FE 12/15 1-20 MG-MCG OR TABS 08/09/2012 - 09/08/2012 Provider: NAEEM SCHULTZ Diagnosis: Last Documented On 2 1:39PM By NAEEM WONG ; [facility] Medications Administered Includes: Administered Medications from this encounter No Administered Medications Recorded Vital Signs Includes: Vital Signs from this encounter Vital Name 09/16/2018 10:53A 09/16/2018 10: 52A Blood Pressure Sitting L 120/60 BP Cuff Size Regular Height (in) 65 65 Weight (lb) 166 Body Mass Index (kg/m2) 27.6 Body Surface Area (m2) 1.8 Last Documented: On 09/16/2018 10:55A M ; [facility] On 09/16/2018 10:52AM ; [facility] Results Includes: Results discussed during this encounter THINPREP TIS PAP REFLEX HPV mRNA E6/E7 Q [employer] Ordered by NAEEM WONG on 08/27 Collected: 09/14/2017 Reported: 09/20/20 17 14:26 Last Documented On 7 8:43AM ; [facility] Reviewed by NAEEM DELA CRUZ SENIOR MAJOR GIFTS OFFICER-BC on 09/21/2017; All test results are final unless otherwise noted. SOURCE: Cervix, Endocervix N (Normal) Last Documented On 7 8:43AM ; [facility] CLINICAL INFORMATION: Routine exam N (Normal) Last Documented On 7 8:43AM ; [facility] LMP: 2014 N (Normal) Last Documented On 7 8:43AM ; [facility] PREV. PAP: 2013 N (Normal) Last Documented On 7 8:43AM ; [facility] PREV. BX: NONE N (Normal) Last Documented On 7 8:43AM ; [facility] STATEMENT OF ADEQUACY: Satisfactory for evaluation. Endocervical/transformation zone component present. N (Normal) Last Documented On 7 8:43AM ; [facility] INTERPRETATION/RESULT: Negative for intraepithelial lesion or malignancy. N (Normal) Last Documented On 7 8:43AM ; [facility] COMMENT: This Pap test has been evaluated with computer assisted technology. N (Normal) Last Documented On 7 8:43AM ; [facility] HOMEMAKER COMPANION: JUSTUS CT(ASCP) CT screening location: [place] [address] [place] [address] N (Normal) Last Documented On 7 8:43AM ; [facility] REVIEW HOMEMAKER COMPANION: PATRICE CT(ASCP) CT screening location: [place] [address] [id number] N (Normal) Last Documented On 7 8:43AM ; [facility] History of Present Illness Includes: History of Present Illness from this encounter HPI RSOI GERARDO is a 27 year old female. - Medication list reviewed - PRIMARY CARE PROVIDER : Dr Veloz Social History Description Last Updated In monogamous relationship 09/16/2018 Last Documented On 8 11:06AM ; [facility] Non-smoker 09/16/2018 Last Documented On 8 11:06AM ; [facility] Not using alcohol 09/16/2018 Last Documented On 8 11:06AM ; [facility] Not using drugs 09/16/2018 Last Documented On 8 11:06AM ; [facility] Sexually active with 1 partners in the l ast year 09/16/2018 Last Documented On 8 11:06AM ; [facility] Social history unchanged 09/16/2018 Last Documented On 8 11:06AM ; [facility] Smoking status : Never smoker 09/16/2018 Last Documented On 8 11:06AM ; [facility] The racial background 09/16/2018 Last Documented On 8 11:06AM ; [facility] The racial background is 09/16 Last Documented On 8 11:06AM ; [facility] Catholic: Orthodox 08/27/2015 Last Documented On 8 10:52AM ; [facility] Faith affiliation 08/27/2015 Last Documented On 8 10:52AM ; [facility] Procedures and Surgical History Includes: Procedures from this encounter Procedures Code Diagnosis Performing Provider Service L ocation Service Date low fat diet Last Documented On 8 10:51AM ; [facility] normal history of Pap smear of cervix Last Documented On 8 10:58AM ; [facility] Medical History Includes: Medical History addressed during this encounter Description Last Updated No recent change in medical history 08/27 Last Documented On 8 11:06AM ; [facility] Not using contraception 09/16/2018 Last Documented On 8 11:06AM ; [facility] Sexually active 09/16/2018 Last Documented On 8 11:06AM ; [facility] LMP: 08/26/2018 09/16/2018 Last Documented On 8 11:06AM ; [facility] History of Pap smear done 09/14/2017 Last Documented On 8 11:06AM ; [facility] Result: normal 09/16/2018 Last Documented On 8 11:06AM ; [facility] 0 08/27/2015 Last Documented On 8 10:52AM ; [facility] History of Gardasil 08/27/2015 Last Documented On 8 10:52AM ; [facility] Family History Includes: Family History addressed during this encounter Description Last Updated Family history unchanged 09/16/2018 Last Documented On 8 11:06AM ; [facility] Spouse name: Sarabjit 08/30/2016 Last Documented On 8 10:52AM ; [facility] Review of Systems Includes: Review of Systems [...] Location Date Check-In Time Check-Out Time Diagnosis ADMEASURER EXAM NAEEM DELA CRUZ [facility] LINING MECHANIC 8 10:45AM 11:08AM Normal Female Exam Insurance Includes: Active Insurance Policies Plan Name Member ID Group # Subscriber Relationship Effect shorty Dates 1 - [facility] [id number] SARABJIT GERARDO Clinical Notes Includes: Clinical Notes from this encounter No Clinical Notes Recorded
--- OUTSIDE RECORDS SUMMARY | 2025-02-24 13:58 | XMS_ITS | Clinical Summary ---
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; no exposure; TB labs negative Social History Tobacco Use Types Packs/Day Years Used Date Smoking Tobacco: Never Smokeless Tobacco: Never Tobacco Cessation:Counseling Given: Not Answered Personal Safety Answer Date Recorded Getting School Help Needed Not on file 11/17 Comments Unknown Sex and Gender Information Value Date Recorded Sex Assigned at Not on file Legal Sex Female 6:39 AM DEMONSTRATOR SEWING TECHNIQUES Gender Identity Not on file Sexual Orientation Not on file Obstetrics History Last Filed Vital Signs Vital Sign Reading Time Taken Comments Blood Pressure 132/70 10/16/2023 3:04 PM DEMONSTRATOR SEWING TECHNIQUES Pulse 96 10/16/2023 3:04 PM DEMONSTRATOR SEWING TECHNIQUES Temperature 37 C (98.6 F) 10/16/2023 3:04 PM DEMONSTRATOR SEWING TECHNIQUES Respiratory Rate 16 10/16/2023 3:04 PM DEMONSTRATOR SEWING TECHNIQUES Oxygen Saturation 98% 10/16/2023 3:04 PM DEMONSTRATOR SEWING TECHNIQUES Inhaled Oxygen Concentration - - Weight 81.6 kg (180 lb) 04/12/2023 3:31 PM CDT Height 165.1 cm (5' 5 ) 10/16/2023 3:04 PM DEMONSTRATOR SEWING TECHNIQUES Body Mass Index 29.95 04/12/2023 3:31 PM CDT Plan of Treatment Health Maintenance Due Date Last Done Comments Cervical Cancer Screening 1992 Depression Screening 1992 Hepatitis C Screening 1992 Varicella Vaccines (1 of 2 - 13+ 2-dose series) 2005 Hepatitis B Screening 2010 Regular Well Visit/Exam 18-64 2010 Influenza Vaccine (#1) 2024 09/26/2018 DTaP/Tdap/Td Vaccine (3 - Td or Tdap) 04/23/2031 04/23/2021, 04/11/2019 HPV Vaccines Aged Out No longer eligi ble based on patient's age to complete this topic Pneumococcal vaccine <65 Aged Out No longer eligible based on patient's age to complete this topic [place] Care Teams Spanish Linguist Relationship Specialty Start Date End Date Kareen Diego MD [address] [place] [address] PCP - General Internal Medicine 06/20/22
--- OUTSIDE RECORDS SUMMARY | 2025-02-24 13:58 | XMS_ITS | Clinical Summary ---
Author Organization [facility] Address [address] [place] [address] Care Team Providers Care Mold Yard Worker Name Role Phone Unavailable Primary Care Provider Unavailabl e Source Comments [facility],non-owned Affiliates and Associated Physician Practices is amultiple site organization consisting of ambulatory clinics and hospital sitesin [place], [place], [place] and [place]. This disclosure is being madepursuant to the Care Everywhere program and may not contain all information available regarding this patient. Last updated 18.[facility] Allergies No known active allergies Social History Tobacco Use Types Packs/Day Years Used Date Smoking Tobacco: Never Alcohol Use Standard Drinks/Week Comments No 0 (1 standard drink = 0.6 oz pur e alcohol) Sex and Gender Information Value Date Recorded Sex Assigned at Not on file Gender Identity Not on file Sexual Orientation Not on file Last Filed Vital Signs Vital Sign Reading Time Taken Comments Blood Pressure 120/90 12/29/2016 12:46 PM SCREW CUTTER Pulse 100 12/29/2016 12:46 PM SCREW CUTTER Temperature 37.1 C (98.8 F) 12/29/2016 12:46 PM SCREW CUTTER Respiratory Rate 16 12/29/2016 12:46 PM SCREW CUTTER Oxygen Saturation - - Inhaled Oxygen Concentration - - Weight 70.3 kg (155 lb) 12/29/2016 12:46 PM SCREW CUTTER Height 165.1 cm (5' 5 ) 12/29/2016 12:46 PM SCREW CUTTER Body Mass Index 25.79 12/29/2016 12:46 PM SCREW CUTTER Plan of Treatment Health Maintenance Due Date Last Done Comments PAP SMEAR 1992 HIV SCREENING 2007 HEPATITIS C SCREENING 10/05/2010 DTAP/TDAP/TD VACCINES (1 - Tdap) 2011 HEPATITIS B VACCINE (1 of 3 - 19+ 3-dose series) 2011 COVID-19 VACCINE (1 - 2023-2 5 season) 2024 INFLUENZA VACCINE (#1) 2024 DEPRESSION SCREENING 11/26/2024 ZOSTER VACCINE (1 of 2) 2042 HIB VACCINE Aged Out No longer eligi ble based on patient's age to complete this topic HPV VACCINE Aged Out No longer eligi ble based on patient's age to complete this topic MENINGOCOCCAL (Group B) VACC INE SHARED DECISION-MAKING Aged Out No longer eligibl e based on patient's age to complete this topic MENINGOCOCCAL GROUPS A/C/Y/W VACCINE Aged Out No longer eligible b ased on patient's age to complete this topic PNEUMOCOCCAL VACCINE Aged Out No long er eligible based on patient's age to complete this topic
--- OUTSIDE RECORDS SUMMARY | 2025-02-24 13:58 | XMS_ITS | Referral Summary ---
Author Organization [facility] Address [address] [place] [address] Phone Care Team Providers Care Car Inspector Name Role Phone Kareen Diego MD Primary Care Provider [phone] Allergies No known active allergies Medications No [...] on file Legal Sex Female 6:39 AM EDUCATIONAL RECRUITER Gender Identity Not on file Sexual Orientation Not on file Last Filed Vital Signs Vital Sign Reading Time Taken Comments Blood Pressure 132/70 10/16/2023 3:04 PM EDUCATIONAL RECRUITER Pulse 96 10/16/2023 3:04 PM EDUCATIONAL RECRUITER Temperature 37 C (98.6 F) 10/16/2023 3:04 PM EDUCATIONAL RECRUITER Respiratory Rate 16 10/16/2023 3:04 PM EDUCATIONAL RECRUITER Oxygen Saturation 98% 10/16/2023 3:04 PM EDUCATIONAL RECRUITER Inhaled Oxygen Concentration - - Weight 81.6 kg (180 lb) 04/12/2023 3:31 PM CDT Height 165.1 cm (5' 5 ) 10/16/2023 3:04 PM EDUCATIONAL RECRUITER Body Mass Index 29.95 04/12/2023 3:31 PM CDT Plan of Treatment Not on file [place] Care Teams Car Inspector Relationship Specialty Start Date End Date Kareen Diego MD [address] [address] PCP - General Internal Medicine 06/20/22
--- OUTSIDE RECORDS SUMMARY | 2025-02-24 13:58 | XMS_ITS | Clinical Summary ---
Author Organization [facility] Address [address] [place] [address] Phone Care Team Providers Care Water Resource Project Manager Name Role Phone PATTI ALMONTE, JEFERSON Dawn Unavailable [phone] ELHAM LUNA MD Primary Care Provider [phone] Reason for Visit and Chief Complaint The Chief Complaint is: nexplanon removal - desires to conceive Problems Includes: Problems addressed during this encounter and other active Problems No Active Problems Plan of Treatment - Clinical summary provided to patient - Last Documented On 07/31/2018 1:04PM ; [facility] Pending Tests Order Diagnosis Results Due Ordering Provider In office procedures - OB Implanon Removal Enctr srvlnc implantable subdermal contraceptive 08/14/18 NAEEM WONG Last Documented On 8 1:02PM ; [facility] Assessments Includes: Assessments from this encounter No [...] Last Documented: On 07/31/2018 12:47P M ; [facility] On 07/31/2018 12:46PM ; [facility] On 07/31/2018 12:43PM ; [facility] Results Includes: Results discussed during this encounter No Results Recorded For Specified Dates History of Present Illness Includes: History of Present Illness from this encounter No History of Present Illness Recorded Social History Description Last Updated Smoking status : Never smoker 07/31/2018 Last Documented On 8 1:04PM ; [facility] The racial background 07/31/2018 Last Documented On 8 1:04PM ; [facility] The racial background is 07/31 Last Documented On 8 1:04PM ; [facility] Restoration: Sabianism 08/27/2015 Last Documented On 8 12:43PM ; [facility] Yarsanism affiliation 08/27/2015 Last Documented On 8 12:43PM ; [facility] Procedures and Surgical History Includes: Procedures from [...] reviewed Last Documented On 8 12:39PM ; [facility] Medical History Includes: Medical History addressed during this encounter Description Last Updated Sexually active 09/16/2018 Last Documented On 8 12:43PM ; [facility] History of Pap smear done 09/14/201703/2018 Last Documented On 8 1:04PM ; [facility] Result: normal 07/31/2018 Last Documented On 8 1:04PM ; [facility] 0 08/27/2015 Last Documented On 8 12:43PM ; [facility] History of Gardasil 08/27/2015 Last Documented On 8 12:43PM ; [facility] Family History Includes: Family History addressed during this encounter Description Last Updated Spouse name: Sarabjit 08/30/2016 Last Documented On 8 12:43PM ; [facility] Review of Systems Includes: Review of Systems [...] Time Diagnosis PROCEDURE OFFICE NAEEM DELA CRUZ [facility] FURNITURE MOVER HELPER 8 12:36PM 1:07PM Insurance Includes: Active Insurance Policies Plan Name Member ID Group # Subscriber Relationship Effect shorty Dates 1 - [facility] [id number] SARABJIT GERARDO Clinical Notes Includes: Clinical Notes from this encounter No Clinical Notes Recorded
--- OUTSIDE RECORDS SUMMARY | 2025-02-24 13:58 | XMS_ITS | Clinical Summary ---
Author Organization [facility] Address [address] [place] [address] Phone Care Team Providers Care Eye Dropper Assembler Name Role Phone PATTI ALMONTE, JEFERSON C Unavailable [phone] CHERYL ALMONTE, ELHAM Primary Care Provider [phone] Reason for Visit and Chief Complaint gynecologic annual exam - The Chief Complaint is: Annual Problems Includes: Problems addressed during this encounter and other active Problems No Active Problems Plan of Treatment - Clinical summary provided to patient - Last Documented On 08/30/2016 3:23PM ; [facility] Per new ASCCP guidelines, pap was deferred today. This was d/w pt. and pt. is agreeable to this plan. - Last Documented On 08/30/2016 3:23PM ; [facility] Instructions to patient Instructions for patient : B reast Self Exam discussed Last Documented On 6 3:00PM ; [facility] Gardasil information given a nd series encouraged Series completed! Last Documented On 6 3:01PM ; [facility] Safe sex counseling Last Documented On 6 3:01PM ; [facility] Education and Decision Aids were provided during visit for: Patient Education: Daily althea cium and vitamin D Last Documented On 6 3:00PM ; [facility] Patient Education: weight be aring exercise Last Documented On 3:00PM ; [facility] Assessments Includes: Assessments from this encounter Findings - NORMAL FEMALE EXAM - Last Documented On 08/30/2016 3:23PM ; [facility] Instructions Includes: Instructions from this encounter Instructions to patient Instructions for patient : B reast Self Exam discussed Last Documented On 6 3:00PM ; [facility] Gardasil information given a nd series encouraged Series completed! Last Documented On 6 3:01PM ; [facility] Safe sex counseling Last Documented On 6 3:01PM ; [facility] Education and Decision Aids were provided during visit for: Patient Education: Daily althea cium and vitamin D Last Documented On 6 3:00PM ; [facility] Patient Education: weight be aring exercise Last Documented On 6 3:00PM ; [facility] Medical Equipment - Implanted Devices Includes: Current Devices No Medical Equipment Recorded Medications Includes: Medications discussed during this encounter and other current Medications Past Medications on file Microgestin FE 12/15 1-20 MG-MCG OR TABS 08/09/2012 - 09/08/2012 Provider: NAEEM SCHULTZ Diagnosis: Last Documented On 2 1:39PM By NAEEM WONG ; [facility] Medications Administered Includes: Administered Medications from this encounter No Administered Medications Recorded Vital Signs Includes: Vital Signs from this encounter Vital Name 08/30/2016 03:09P Blood Pressure Sitting L 122/64 BP Cuff Size Regular Height (in) 65 Weight (lb) 154 Body Mass Index (kg/m2) 25.6 Body Surface Area (m2) 1.8 Last Documented: On 08/30/2016 3:11PM ; [facility] Results Includes: Results discussed during this encounter SUREPATH PAP RFX HPV mRNA E6/E7 [employer] Ordered by NAEEM WONG on 06/2014 Collected: 08/03/2014 Reported: 08/05/20 14 21:23 Last Documented On 4 9:02AM ; [facility] Reviewed on 08/06/2014; All test results are final unless otherwise noted. SOURCE: Cervix, Endocervix N (Normal) Last Documented On 4 9:02AM ; [facility] CLINICAL INFORMATION: Other high risk factor, specify Routine exam N (Normal) Last Documented On 4 9:02AM ; [facility] LMP: 2012 N (Normal) Last Documented On 4 9:02AM ; [facility] PREV. PAP: NONE N (Normal) Last Documented On 4 9:02AM ; [facility] PREV. BX: NONE N (Normal) Last Documented On 4 9:02AM ; [facility] STATEMENT OF ADEQUACY: Satisfactory for evaluation. Endocervical/transformation zone component present. N (Normal) Last Documented On 4 9:02AM ; [facility] INTERPRETATION/RESULT: Negative for intraepithelial lesion or malignancy. N (Normal) Last Documented On 4 9:02AM ; [facility] HOE RUNNER: ABC, CT(ASCP) N (Normal) Last Documented On 4 9:02AM ; [facility] History of Present Illness Includes: History of Present Illness from this encounter GURMEET GERARDO is a 25 year old female. - Medication list reviewed - PRIMARY CARE PROVIDER : Dr Veloz Social History Description Last Updated Alcohol use socially 08/30/2016 Last Documented On 6 3:23PM ; [facility] In monogamous relationship 08/30/2016 Last Documented On 6 3:23PM ; [facility] Non-smoker 08/30/2016 Last Documented On 6 3:23PM ; [facility] Not using drugs 08/30/2016 Last Documented On 6 3:23PM ; [facility] Sexually active with 1 partners in the l ast year 08/30/2016 Last Documented On 6 3:23PM ; [facility] Social history changed in June 2016 08/30/2016 Last Documented On 6 3:23PM ; [facility] Smoking status : Never smoker 08/30/2016 Last Documented On 6 3:23PM ; [facility] Yazidism: Adventism 08/27/2015 Last Documented On 6 3:00PM ; [facility] Mandaeism affiliation 08/27/2015 Last Documented On 6 3:00PM ; [facility] Procedures and Surgical History Includes: Procedures from this encounter Procedures Code Diagnosis Performing Provider Service L ocation Service Date low fat diet Last Documented On 6 3:01PM ; [facility] normal history of Pap smear of cervix Last Documented On 6 3:12PM ; [facility] Medical History Includes: Medical History addressed during this encounter Description Last Updated No recent change in medical history 03/2016 Last Documented On 6 3:23PM ; [facility] LMP: 2015 08/30/2016 Last Documented On 6 3:23PM ; [facility] Sexually active 08/30/2016 Last Documented On 6 3:23PM ; [facility] Contraception: nexplanon 08-27-15 016 Last Documented On 6 3:23PM ; [facility] History of Pap smear done 08/03/201403/2016 Last Documented On 6 3:23PM ; [facility] Result: normal 08/30/2016 Last Documented On 6 3:23PM ; [facility] 0 08/27/2015 Last Documented On 6 3:00PM ; [facility] History of Gardasil 08/27/2015 Last Documented On 6 3:00PM ; [facility] Family History Includes: Family History addressed during this encounter Description Last Updated Spouse name: Sarabjit 08/30/2016 Last Documented On 6 3:23PM ; [facility] Family history unchanged 08/30/2016 Last Documented On 6 3:23PM ; [facility] Review of Systems Includes: Review of Systems [...] Location Date Check-In Time Check-Out Time Diagnosis BOBBIN DOFFER EXAM NAEEM [facility] VIDEO TAPE EDITOR 6 2:59PM 3:26PM Normal Female Exam Insurance Includes: Active Insurance Policies Plan Name Member ID Group # Subscriber Relationship Effect shorty Dates 1 - [facility] [id number] SARABJIT GERARDO Clinical Notes Includes: Clinical Notes from this encounter No Clinical Notes Recorded
--- OUTSIDE RECORDS SUMMARY | 2025-02-24 13:58 | XMS_ITS ---
Care Plan - [facility] Created on: February 24, 2025 ROSI GERARDO : 1990 Sex: Female Author Organization [facility] Address [address] [place] [address] Phone Care Team Providers Care Video Surveillance Technician Name Role Phone PATTI ALMONTE, JEFERSON C Unavailable [phone] CHERYL ALMONTE, ELHAM Primary Care Provider [phone]
--- OUTSIDE RECORDS SUMMARY | 2025-02-24 13:58 | XMS_ITS | Clinical Summary ---
Author Organization [facility] Address [address] [place] [address] Phone Care Team Providers Care Healthcare Management Name Role Phone PATTI ALMONTE, JEFERSON C Unavailable [phone] CHERYL ALMONTE, ELHAM Primary Care Provider [phone] Reason for Visit and Chief Complaint The Chief Complaint is: Nexplanon check removal and reinsertion-no complaints Problems Includes: Problems addressed during this encounter and other active Problems No Active Problems Plan of Treatment No Plan of Treatment Recorded Assessments Includes: Assessments from this encounter Findings - Contraceptive management - Last Documented On 09/27/2015 1:51PM ; [facility] Medical Equipment - Implanted Devices Includes: Current Devices No Medical Equipment Recorded Medications Includes: Medications discussed during this encounter and other current Medications Past Medications on file Microgestin FE 12/15 1-20 MG-MCG OR TABS 08/09/2012 - 09/08/2012 Provider: NAEEM SCHULTZ Diagnosis: Last Documented On 2 1:39PM By NAEEM WONG ; [facility] Medications Administered Includes: Administered Medications from this encounter No Administered Medications Recorded Vital Signs Includes: Vital Signs from this encounter Vital Name 09/27/2015 01:42P Blood Pressure Sitting L 120/70 BP Cuff Size Regular Height (in) 65 Weight (lb) 155 Body Mass Index (kg/m2) 25.8 Body Surface Area (m2) 1.8 Last Documented: On 09/27/2015 1:44PM ; [facility] Results Includes: Results discussed during this encounter No Results Recorded For Specified Dates History of Present Illness Includes: History of Present Illness from this encounter No History of Present Illness Recorded Social History Description Last Updated Smoking status : Never smoker 09/27/2015 Last Documented On 5 1:51PM ; [facility] Medical History Includes: Medical History addressed during this encounter Description Last Updated Contraception: nexplanon 10-2-15 015 Last Documented On 5 1:51PM ; [facility] Family History Includes: Family [...] Diagnosis 1 MONTH CHECK NAEEM DELA CRUZ [facility] FEEDER ASSOCIATE 09/27/20 15 1:39PM 1:49PM Contraceptive Management Insurance Includes: Active Insurance Policies Plan Name Member ID Group # Subscriber Relationship Effect shorty Dates 1 - [facility] [id number] SARABJIT GERARDO Clinical Notes Includes: Clinical Notes from this encounter No Clinical Notes Recorded
--- OUTSIDE RECORDS SUMMARY | 2025-02-24 13:58 | XMS_ITS | Clinical Summary ---
Author Organization [facility] Care Team Providers Care Drug Safety Scientist Name Role Phone Aldo Veloz MD Primary Care Provider [phone] Allergies No known active allergies Medications fluticasone (FLONASE) 50 MCG/ACT Suspension 1 Summit by Nasal route in the morning and at bedtime. Use in each nostril as directed. 16 g 3 2 Active Additional Information Patient not taking.Reported on 01/12/2023 sucralfate (CARAFATE) 1 GM Tablet Take 1 Tablet by mouth every 6 hours. 120 Tablet 3 Active Additional Information Patient not taking.Reported on 02/28/2023 omeprazole (PriLOSEC) 20 MG CAPSULE DELAYED RELEASE Two tabs daily for 2 weeks then reduce to 1 tab daily thereafter 60 Capsule 2 3 Active Additional Information Patient not taking.Reported on 05/04/2023 metroNIDAZOLE (FLAGYL) 500 MG Tablet Take 1 Tablet by mouth 3 times daily. 30 Tablet 3 Active Additional Information Patient not taking.Reported on 02/28/2023 chlorhexidine (PERIDEX) 0.12 % Solution 15 mL by Swish & Spit route 2 times daily. 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; TB labs negative Immunizations Immunization Administration Dates Next Due Influenza Vaccine, Quadrivalent, PF 09/26/2018 TDAP Vaccine 04/23/2021,04/11/2019 Social History Tobacco Use Types Packs/Day Years Used Date Smoking Tobacco: Never Smokeless Tobacco: Never Tobacco Cessation:Counseling Given: No Alcohol Use Standard Drinks/Week Comments Not Currently 0 (1 standard drink = 0.6 oz pur e alcohol) PHQ-2 Answer Date Recorded Total Score - Questions 1-9 0 05/27 Comments No Sex and Gender Information Value Date Recorded Sex Assigned at Not on file Legal Sex Female 11:41 AM CDT Gender Identity Not on file Sexual Orientation Not on file Last Filed Vital Signs Vital Sign Reading Time Taken Comments Blood Pressure 126/80 05/04/2023 2:26 PM CDT Pulse 117 05/04/2023 2:26 PM CDT Temperature 36.7 C (98 F) 05/04/2023 2:26 PM CDT Respiratory Rate 12 05/04/2023 2:26 PM CDT Oxygen Saturation 99% 05/04/2023 2:26 PM CDT Inhaled Oxygen Concentration - - Weight 81.6 kg (180 lb) 05/04/2023 2:26 PM CDT Height 165.1 cm (5' 5 ) 05/04/2023 2:26 PM CDT Body Mass Index 29.95 05/04/2023 2:26 PM CDT Plan of Treatment Health Maintenance Due Date Last Done Comments Hepatitis C Virus (HCV) Screening 1990 Hepatitis B Immunization (1 of 3 - 19+ 3-dose series) 2011 Pap Smear 2013 Cervical Cancer Screening (CCS) 2022 HPV/Cotest 2022 Influenza Immunization (#1) 2024 09/26/2018 SARS-COV-2 Immunization ( season) 2024 07/08/2021, 06/17/2021 Respiratory Syncytial Virus (RSV) Immunization (Adult) (1 - 1-dose 75+ series) 2067 DTaP/Tdap/Td Immunization Discontinued 2020, 04/11/2019 Meningococcal Immunization (ACWY) Aged Out No longer eligible based on patient's age to complete this topic Pneumococcal Immunization Combined Aged Out No longer eligible based on patient's age to complete this topic Rotavirus Immunization Aged Out No lo nger eligible based on patient's age to complete this topic Insurance [facility] Care Teams Drug Safety Scientist Relationship Specialty Start Date End Date Aldo Veloz MD [address] [place] [address] PCP - General Internal Medicine 01/03/20
== END 2025-02-24 12:51 | disposition home or self-care (01) ==
PROVIDERS: PCP Physician Assistant; Visit Provider Obstetrics & Gynecology
DX: N64.4 Mastodynia (principal)
CPT/HCPCS: 76641; 77062; 77066; G0279

== ENCOUNTER 2025-09-05 08:05 | Emergency (ER) | payer BC, SELFPAY ==
--- NOTE | 2025-09-05 08:14 | ED.URI ---
HPI - URI/Sore Throat General Chief Complaint: Upper Respiratory Infection Stated Complaint: Sore Throat/Congestion Time Seen by Provider: 09/05/25 08:26 Source: patient and RN notes reviewed Mode of arrival: ambulatory Limitations: no limitations History of Present Illness HPI Narrative: 34-year-old female presents concern for 1/2 week history of sore throat, nasal congestion, cough. Reports her has similar symptoms. She has been taking [id number] medication without relief. She had fever, body aches, chills, sweats when symptoms started but no longer has does symptoms MD elicited complaint: cough and sore throat Related Data Allergies Allergy/AdvReac Type Severity Reaction Status Date / Time No Known Allergies Allergy Verified 09/05/25 08:22 Review of Systems Review of Systems: CONSTITUTIONAL: Denies malaise, chills, sweats, or fever. EYES: Denies visual changes, redness, or discharge. ENT: Reports rhinorrhea, congestion, and sore throat. CARDIOVASCULAR: Denies chest pain, palpitations, or edema. RESPIRATORY: Reports cough. Denies dyspnea. GASTROINTESTINAL: Denies abdominal pain, nausea, vomiting, diarrhea SKIN: Denies rash or itching. MUSCULOSKELETAL: Denies myalgia. NEUROLOGIC: Denies headache. All systems reviewed & are unremarkable except as noted in HPI and below PMFSH Past Medical History Medical History Anxiety Belching Missed ab and not yet delivered Family History Family History Father Hypertension Depression Grandparent Heart disease Cerebrovascular accident Other No pertinent family history Social History Social History Smoking status: Never smoker Substance use: never Substance use type: does not use Lack of Transportation: No Lack of Food: Never True Current Housing: I Have Housing Concerned About Future Housing: No Difficulty Paying Gas/Electric Bills: No Difficulty Paying for Meds: No Currently Unemployed: No Education: Bachelor's Degree Difficulty w/ Childcare or Family Care: No Gender identity (if verbalized by the patient): Female Spiritual care concerns: No Comments At time of signature, agree with nursing past medical, surgical, social and family history. There is no relevant family history pertinent to the presenting complaint Exam Narrative: GENERAL: Well-appearing, well-nourished, and in no acute distress. HEAD: Normocephalic EYES: PERRLA, conjunctivae clear ENT: Nares clear. Mucous membranes moist. TM pearly simmons with sharp light reflex bilaterally; no tragal tenderness. Oropharynx not erythematous without lesions. Tonsils not enlarged and without exudate, no drooling, mild hoarseness, no trismus, uvula midline. NECK: Supple. No lymphadenopathy CHEST: Clear to auscultation, breath sounds equal. No wheezing, rhonchi, rales, or stridor. No respiratory distress, speaks in full sentences. Cough noted HEART: Regular rate and rhythm. No murmur heard. SKIN: Warm, dry, no rash. NEURO: Alert and oriented x3. PSYCH: Normal mood and affect Course Course Emergency Course: Patient is aware of diagnosis, understands and agrees to treatment plan. Anticipatory guidance given. Patient agrees to follow-up as directed and is aware of reasons to seek care at the emergency department. Portions of this record may have been created with voice recognition software Level of Care: [facility] Visit Vital Signs Vital signs: Reviewed. MDM - URI/Sore Throat MDM Narrative Medical decision making narrative: Differential diagnosis considered: Martell virus, strep pharyngitis, allergic rhinitis, upper respiratory tract infection, sinusitis, rhinosinusitis, nasopharyngitis. viral pharyngitis, otitis media, otitis externa, pneumonia, bronchitis, viral cough syndrome, viral syndrome, and influenza. Exam findings show no acute concerns or changes; patient is non-toxic appearing and is in no distress. Patient is appropriate for outpatient treatment and follow-up. Lab Data Attestation: I reviewed the patient's lab results. Critical Care Time Critical Care Time Critical Care Time: No Discharge Plan Discharge Clinical Impression: Bronchitis Patient Disposition: Home Condition: Stable Instructions: Acute Bronchitis (ED) Additional Instructions: Your rapid strep swab was negative today at [facility]. A throat culture will be sent to the laboratory for further testing. If the test is positive, you will receive a phone call within 48 hours and an appropriate antibiotic will be initiated at that time. Your symptoms are likely due to a viral illness, which is not treated with antibiotics. Viral symptoms can be present for up to a few weeks. -Alternate Tylenol and Motrin per package directions for fever or pain. -Antihistamine medication such as Benadryl at night and Zyrtec during the day can help improve symptoms. -Eat and drink things that are easy to swallow, like tea or soup, or popsicles to suck on. -Oral rinses such as: Salt water gargles and/or may use topical anesthetic (eg. Chloraseptic spray) or lozenges to relieve dryness or throat pain). -Frequent hand washing or hand merchandise coordinator is one of the best ways to prevent spread of infection. -Follow up with primary care provider in 2-3 days if condition is not improving; or seek ER visit if you have trouble breathing, cannot drink enough fluids, have muffled voice, difficulty opening your mouth, or severe swelling. Patient Language: Maltese Prescriptions: New prednisone 20 mg tablet 40 mg PO DAILY 5 Days Qty: 10 0RF No Action amoxicillin 500 mg capsule 500 mg PO BID 10 Days Qty: 20 0RF prednisone 20 mg tablet 40 mg PO DAILY 5 Days Qty: 10 0RF Follow-up/Referrals: Nuzhat,JOSELITO Mac [Primary Care Provider, Unknown] Time of Disposition: 08:36
[2025-09-05 08:17] VITALS: BP 118/87; PULSE 90; RESP 18; TEMP 36.2; O2SAT 97
[2025-09-05 08:30] LABS: EDSTREPNEGPOS1 Negative (Negative)
== END 2025-09-05 08:43 | disposition home or self-care (01) ==
PROVIDERS: Emergency Provider Nurse Practitioner; PCP Physician Assistant
DX: J40 Bronchitis, not specified as acute or chronic (principal)
CPT/HCPCS: 87081; 87880; 99213; G0463